=== PATIENT | female | born 1970 | race Caucasian/White ===

== ENCOUNTER 2017-02-19 03:56 | Emergency (ER) | payer MEDICAID ==
[2017-02-19 04:08] VITALS: BP 119/68
--- NOTE | 2017-02-19 04:13 | EDM.PDOCBH ---
ED HPI GENERAL MEDICAL PROBLEM - General Chief Complaint: Behavioral/Psych Stated Complaint: TOOK PILLS Time Seen by Provider: 02/19/17 04:13 - History of Present Illness INITIAL COMMENTS - FREE TEXT/NARRATIVE: 46-year-old female presents emergency room after ingesting pills. The patient became upset and stressed out over a lot of family matters and took up to 80 hydroxyzine 50 mg and up to 60 clonazepam 0.5 mg these prescriptions were filled recently the hydroxyzine the of this month and a clonazepam on the of this month. The patient while she is down with a 12 pack a [place]. The patient new that this was potentially very harmful and that was her intent. Patient has had one suicidal attempt in the past when she was approximately 16 years of age. The patient takes Trintellix, a a antidepressant , but denies taking these this evening. The patient presents emergency room with her . - Related Data Allergies Allergy/AdvReac Type Severity Reaction Status Date / Time No Known Allergies Allergy Verified 03/14/15 17:08 Home Meds: Home Meds Vortioxetine Hydrobromide [Brintellix] 10 mg PO DAILY 03/14/15 [History] ClonazePAM [KlonoPIN] 0.5 mg PO TID 02/19/17 [History] hydrOXYzine Pamoate [Hydroxyzine Pamoate] 50 mg PO TID 02/19/17 [History] Social & Family History - Tobacco Use Smoking Status *Q: Never Smoker - Recreational Drug Use Recreational Drug Use: No ED ROS GENERAL - Review of Systems Review Of Systems: See Below Constitutional: Reports: No Symptoms HEENT: Reports: No Symptoms Respiratory: Reports: No Symptoms, Cough GI/Abdominal: Reports: No Symptoms : Reports: No Symptoms Musculoskeletal: Reports: No Symptoms Skin: Reports: No Symptoms Neurological: Reports: No Symptoms Psychiatric: Reports: Mood Lability, Suicidal Ideation. Denies: Hallucinations , Homicidal Ideation Hematologic/Lymphatic: Reports: No Symptoms Immunologic: Reports: No Symptoms ED EXAM, BEHAVIORAL HEALTH - Physical Exam Exam: See Below Exam Limited By: No Limitations General Appearance: Alert, No Apparent Distress, Other (She is slightly sedated at this time) Eye Exam: Bilateral Eye: EOMI, Normal Inspection, PERRL (Slightly pinpoint) Ears: Normal External Exam, Normal Canal, Hearing Grossly Normal, Normal TMs Nose: Normal Inspection, Normal Mucosa, No Blood Throat/Mouth: Normal Inspection, Normal Oropharynx, Normal Voice, No Airway Compromise Head: Atraumatic, Normocephalic Neck: Normal Inspection, Supple, Non-Tender, Full Range of Motion Respiratory/Chest: No Respiratory Distress, Lungs Clear, Normal Breath Sounds Cardiovascular: Regular Rate, Rhythm, No Edema, No Murmur GI/Abdominal: Normal Bowel Sounds, Soft, Non-Tender, Other (Significant obesity) Back Exam: Normal Inspection. No: CVA Tenderness (L), CVA Tenderness (R) Neurological: Alert, CN II-XII Intact, No Motor/Sensory Deficits Psychiatric: Flat Affect, Suicidal Plan, Suicidal Thoughts. No: Normal Affect COURSE, BEHAVIORAL HEALTH COMP - Course Vital Signs: Last Vital Signs Temp 35.9 C 02/19/17 04:05 Pulse 104 H 02/19/17 04:05 Resp 23 H 02/19/17 04:05 BP 119/68 02/19/17 04:05 Pulse Ox 92 L 02/19/17 04:05 Orders, Labs, Meds: Active Orders 24 hr Category Date Time Status EKG Documentation Completion [RC] STAT Care 02/19/17 04:41 Active Lactated Ringers [Ringers, Lactated] 1,000 ml Med 02/19/17 05:45 Active IV ASDIRECTED Medication Orders Lactated Ringer's (Ringers, Lactated) 1,000 mls @ 150 mls/hr IV ASDIRECTED GUS Last Admin: 02/19/17 05:56 Dose: 150 mls/hr Laboratory Tests 02/19/17 02/19/17 02/19/17 Range/Units 05:05 05:05 05:05 WBC 7.08 (3.98-10.04) K/mm3 RBC 4.45 (3.98-5.22) M/mm3 Hgb 13.4 (11.2-15.7) gm/L Hct 40.0 (34.1-44.9) % MCV 89.9 (79.4-94.8) fl MCH 30.1 (25.6-32.2) pg MCHC 33.5 (32.2-35.5) g/dl RDW Std Deviation 42.0 (36.4-46.3) fL Plt Count 262 (182-369) K/mm3 MPV 10.2 (9.4-12.3) fl Neutrophils % (Manual) 59 (40-60) % Band Neutrophils % 0 (0-10) % Lymphocytes % (Manual) 31 (20-40) % Atypical Lymphs % 1 % Monocytes % (Manual) 7 (2-10) % Eosinophils % (Manual) 0 L (0.7-5.8) % Basophils % (Manual) 2 H (0.1-1.2) Platelet Estimate Adequate Plt Morphology Comment Normal RBC Morph Comment Normal Sodium 141 (136-145) mEq/L Potassium 3.8 (3.5-5.1) mEq/L Chloride 106 (98-107) mEq/L Carbon Dioxide 30 (21-32) mEq/L Anion Gap 8.8 (5-15) BUN 17 (7-18) mg/dL Creatinine 1.0 (0.55-1.02) mg/dL Est Cr Clr Drug Dosing 67.21 mL/min Estimated GFR (MDRD) > 60 (>60) mL/min BUN/Creatinine Ratio 17.0 (14-18) Glucose 150 H (74-106) mg/dL Lactic Acid 2.2 H (0.4-2.0) mmol/L Calcium 9.5 (8.5-10.1) mg/dL Total Bilirubin 0.3 (0.2-1.0) mg/dL AST 19 (15-37) U/L ALT 24 (14-59) U/L Alkaline Phosphatase 81 (46-116) U/L Total Protein 7.1 (6.4-8.2) g/dl Albumin 3.1 L (3.4-5.0) g/dl Globulin 4.0 gm/dL Albumin/Globulin Ratio 0.8 L (1-2) TSH 3rd Generation 1.580 (0.358-3.74) uIU/mL Urine Color (Yellow) Urine Appearance (Clear) Urine pH (5.0-8.0) Ur Specific [place] (1.005-1.030) Urine Protein (Negative) Urine Glucose (UA) (Negative) Urine Ketones (Negative) Urine Occult Blood (Negative) Urine Nitrite (Negative) Urine Bilirubin (Negative) Urine Urobilinogen (0.2-1.0) Ur Leukocyte Esterase (Negative) Urine RBC (0-5) /hpf Urine WBC (0-5) /hpf Ur Epithelial Cells (0-5) /hpf Urine Bacteria (FEW) /hpf Urine Mucus (FEW) /hpf Urine HCG, Qual (NEGATIVE) Salicylates (2.8-20) mg/dL Urine Opiates Screen (NEGATIVE) Ur Buprenorphine Scrn (NEGATIVE) Ur Oxycodone Screen (NEGATIVE) Urine Methadone Screen (NEGATIVE) Ur Propoxyphene Screen (NEGATIVE) Acetaminophen 0 L (10-30) ug/mL Ur Barbiturates Screen (NEGATIVE) Ur Tricyclics Screen (NEGATIVE) Ur Phencyclidine Scrn (NEGATIVE) Ur Amphetamine Screen (NEGATIVE) U Methamphetamines Scrn (NEGATIVE) U Benzodiazepines Scrn (NEGATIVE) U Cocaine Metab Screen (NEGATIVE) U Marijuana (THC) Screen (NEGATIVE) Ethyl Alcohol 0.00 (0.00) gm% 02/19/17 02/19/17 02/19/17 Range/Units 05:05 06:15 06:15 WBC (3.98-10.04) K/mm3 RBC (3.98-5.22) M/mm3 Hgb (11.2-15.7) gm/L Hct (34.1-44.9) % MCV (79.4-94.8) fl MCH (25.6-32.2) pg MCHC (32.2-35.5) g/dl RDW Std Deviation (36.4-46.3) fL Plt Count (182-369) K/mm3 MPV (9.4-12.3) fl Neutrophils % (Manual) (40-60) % Band Neutrophils % (0-10) % Lymphocytes % (Manual) (20-40) % Atypical Lymphs % % Monocytes % (Manual) (2-10) % Eosinophils % (Manual) (0.7-5.8) % Basophils % (Manual) (0.1-1.2) Platelet Estimate Plt Morphology Comment RBC Morph Comment Sodium (136-145) mEq/L Potassium (3.5-5.1) mEq/L Chloride (98-107) mEq/L Carbon Dioxide (21-32) mEq/L Anion Gap (5-15) BUN (7-18) mg/dL Creatinine (0.55-1.02) mg/dL Est Cr Clr Drug Dosing mL/min Estimated GFR (MDRD) (>60) mL/min BUN/Creatinine Ratio (14-18) Glucose (74-106) mg/dL Lactic Acid (0.4-2.0) mmol/L Calcium (8.5-10.1) mg/dL Total Bilirubin (0.2-1.0) mg/dL AST (15-37) U/L ALT (14-59) U/L Alkaline Phosphatase (46-116) U/L Total Protein (6.4-8.2) g/dl Albumin (3.4-5.0) g/dl Globulin gm/dL Albumin/Globulin Ratio (1-2) TSH 3rd Generation (0.358-3.74) uIU/mL Urine Color (Yellow) Urine Appearance (Clear) Urine pH (5.0-8.0) Ur Specific [place] (1.005-1.030) Urine Protein (Negative) Urine Glucose (UA) (Negative) Urine Ketones (Negative) Urine Occult Blood (Negative) Urine Nitrite (Negative) Urine Bilirubin (Negative) Urine Urobilinogen (0.2-1.0) Ur Leukocyte Esterase (Negative) Urine RBC (0-5) /hpf Urine WBC (0-5) /hpf Ur Epithelial Cells (0-5) /hpf Urine Bacteria (FEW) /hpf Urine Mucus (FEW) /hpf Urine HCG, Qual Negative (NEGATIVE) Salicylates 1.4 L (2.8-20) mg/dL Urine Opiates Screen Negative (NEGATIVE) Ur Buprenorphine Scrn Negative (NEGATIVE) Ur Oxycodone Screen Negative (NEGATIVE) Urine Methadone Screen Negative (NEGATIVE) Ur Propoxyphene Screen Negative (NEGATIVE) Acetaminophen (10-30) ug/mL Ur Barbiturates Screen Negative (NEGATIVE) Ur Tricyclics Screen Presumptive positive H (NEGATIVE) Ur Phencyclidine Scrn Negative (NEGATIVE) Ur Amphetamine Screen Negative (NEGATIVE) U Methamphetamines Scrn Presumptive positive H (NEGATIVE) U Benzodiazepines Scrn Presumptive positive H (NEGATIVE) U Cocaine Metab Screen Negative (NEGATIVE) U Marijuana (THC) Screen Negative (NEGATIVE) Ethyl Alcohol (0.00) gm% 02/19/17 Range/Units 06:15 WBC (3.98-10.04) K/mm3 RBC (3.98-5.22) M/mm3 Hgb (11.2-15.7) gm/L Hct (34.1-44.9) % MCV (79.4-94.8) fl MCH (25.6-32.2) pg MCHC (32.2-35.5) g/dl RDW Std Deviation (36.4-46.3) fL Plt Count (182-369) K/mm3 MPV (9.4-12.3) fl Neutrophils % (Manual) (40-60) % Band Neutrophils % (0-10) % Lymphocytes % (Manual) (20-40) % Atypical Lymphs % % Monocytes % (Manual) (2-10) % Eosinophils % (Manual) (0.7-5.8) % Basophils % (Manual) (0.1-1.2) Platelet Estimate Plt Morphology Comment RBC Morph Comment Sodium (136-145) mEq/L Potassium (3.5-5.1) mEq/L Chloride (98-107) mEq/L Carbon Dioxide (21-32) mEq/L Anion Gap (5-15) BUN (7-18) mg/dL Creatinine (0.55-1.02) mg/dL Est Cr Clr Drug Dosing mL/min Estimated GFR (MDRD) (>60) mL/min BUN/Creatinine Ratio (14-18) Glucose (74-106) mg/dL Lactic Acid (0.4-2.0) mmol/L Calcium (8.5-10.1) mg/dL Total Bilirubin (0.2-1.0) mg/dL AST (15-37) U/L ALT (14-59) U/L Alkaline Phosphatase (46-116) U/L Total Protein (6.4-8.2) g/dl Albumin (3.4-5.0) g/dl Globulin gm/dL Albumin/Globulin Ratio (1-2) TSH 3rd Generation (0.358-3.74) uIU/mL Urine Color Yellow (Yellow) Urine Appearance Clear (Clear) Urine pH 5.5 (5.0-8.0) Ur Specific [place] > or = 1.030 (1.005-1.030) Urine Protein 1+ H (Negative) Urine Glucose (UA) Negative (Negative) Urine Ketones Negative (Negative) Urine Occult Blood 2+ H (Negative) Urine Nitrite Negative (Negative) Urine Bilirubin Negative (Negative) Urine Urobilinogen 0.2 (0.2-1.0) Ur Leukocyte Esterase Negative (Negative) Urine RBC 5-10 H (0-5) /hpf Urine WBC 5-10 H (0-5) /hpf Ur Epithelial Cells 0-5 (0-5) /hpf Urine Bacteria Few (FEW) /hpf Urine Mucus Many H (FEW) /hpf Urine HCG, Qual (NEGATIVE) Salicylates (2.8-20) mg/dL Urine Opiates Screen (NEGATIVE) Ur Buprenorphine Scrn (NEGATIVE) Ur Oxycodone Screen (NEGATIVE) Urine Methadone Screen (NEGATIVE) Ur Propoxyphene Screen (NEGATIVE) Acetaminophen (10-30) ug/mL Ur Barbiturates Screen (NEGATIVE) Ur Tricyclics Screen (NEGATIVE) Ur Phencyclidine Scrn (NEGATIVE) Ur Amphetamine Screen (NEGATIVE) U Methamphetamines Scrn (NEGATIVE) U Benzodiazepines Scrn (NEGATIVE) U Cocaine Metab Screen (NEGATIVE) U Marijuana (THC) Screen (NEGATIVE) Ethyl Alcohol (0.00) gm% Medications Generic Name Dose Route Start Last Admin Trade Name Freq PRN Reason Stop Dose Admin Lactated Ringer's 1,000 mls @ 150 mls/hr 02/19/17 05:45 02/19/17 05:56 Ringers, Lactated IV 150 mls/hr ASDIRECTED GSU Administration Re-Assessment/Re-Exam Date: 02/19/17 Medical Clearance: 02/19/17 08:03 Since case was discussed early on with poison control who recommended 4-6 hours of observation after the time of ingestion. Patient claims ingestion time was around midnight patient's states it was closer to 10 PM. The patient has had some sedation while here however is arousable and ask appropriate. Patient was evaluated by Gerald from [facility] who also believes the patient needs to be committed for further psychiatric evaluation and treatment. She did arrange acceptance at [facility] in [facility]. Discharge vs Psych Eval/Treatment:: 02/19/17 08:02 Patient will be discharged to [facility] in [place]. Case discussed with Ashley Fuentes excepting the patient. Departure - Departure Time of Disposition: 08:08 Disposition: DC/Tfer to Psych Hosp/Unit 65 Clinical Impression: Suicide attempt by drug ingestion - Discharge Information Referrals: PCP,None [Primary Care Provider] - Forms: ED Department Discharge - My Orders Last 24 Hours: My Active Orders 02/19/17 04:41 EKG Documentation Completion [RC] STAT 02/19/17 05:45 Lactated Ringers [Ringers, Lactated] 1,000 ml IV ASDIRECTED - Assessment/Plan Last 24 Hours: My Active Orders 02/19/17 04:41 EKG Documentation Completion [RC] STAT 02/19/17 05:45 Lactated Ringers [Ringers, Lactated] 1,000 ml IV ASDIRECTED
[2017-02-19 05:39] LABS: ACETAMINOPHEN 0 ug/mL (10-30)
[2017-02-19] MEDS ORDERED: Lactated Ringers 1,000 ML IV SCH (05:45)
== END 2017-02-19 09:55 ==
LOC: JD.ED 03:56
DX: T42.4X2A Poisoning by benzodiazepines, intentional self-harm, initial encounter (principal); Z79.899 Other long term (current) drug therapy
CPT/HCPCS: 36415; 80053; 80306; 81001; 81025; 83605; 84443; 85025; 93005; 96360; 96361; 99285; G0480; J7120

== ENCOUNTER 2017-02-23 13:54 | Emergency (ER) | payer MEDICAID ==
[2017-02-23 14:14] VITALS: BP 142/73
--- NOTE | 2017-02-23 14:54 | EDM.PDOCBH ---
ED HPI GENERAL MEDICAL PROBLEM - General Chief Complaint: Behavioral/Psych Stated Complaint: PSYCH EVAL Time Seen by Provider: 02/23/17 14:31 Source of Information: Reports: Patient History Limitations: Reports: No Limitations - History of Present Illness INITIAL COMMENTS - FREE TEXT/NARRATIVE: Patient is a 46-year-old female with history of depression and anxiety who presents to the ED complaining of suicidal ideations. She just wants to . She has no plan in place. She was just recently released from [facility] yesterday. She was admitted for overdosing on medications. She states they did not modify in her medications except for stopping the hydroxyzine. Currently does not have an appointment scheduled to see a psych provider locally. She was hoping to see a provider at [facility] tomorrow but they do not take appointments. She wants help. She has taken amitriptyline, clonazepam, meloxicam, and vortioxetine today as prescribed. She denies taking any medications in excess. She has not taken any aspirin or Tylenol. She denies using any alcohol or recreational drugs. She has been seen multiple times for depression, anxiety, suicical ideations, and attempts. - Related Data Allergies Allergy/AdvReac Type Severity Reaction Status Date / Time No Known Allergies Allergy Verified 03/14/15 17:08 Home Meds: Home Meds ClonazePAM [KlonoPIN] 0.5 mg PO TID 02/19/17 [History] Vortioxetine Hydrobromide [Trintellix] 15 mg PO QAM #90 tablet 02/23/17 [Rx] hydrOXYzine Pamoate [Hydroxyzine Pamoate] 50 mg PO TID #90 capsule 02/23/17 [Rx] Past Medical History Cardiovascular History: Reports: Other (See Below) Other Cardiovascular History: prolapsed mitral valve Psychiatric History: Reports: Suicide Attempt, Suicidal Ideation Social & Family History - Family History Family Medical History: Noncontributory - Tobacco Use Smoking Status *Q: Never Smoker - Caffeine Use Caffeine Use: Reports: Coffee, Soda - Recreational Drug Use Recreational Drug Use: No ED ROS GENERAL - Review of Systems Review Of Systems: ROS reveals no pertinent complaints other than HPI. ED EXAM, BEHAVIORAL HEALTH - Physical Exam Exam: See Below Exam Limited By: No Limitations General Appearance: Alert, WD/WN, Other (crying) Eye Exam: Bilateral Eye: PERRL Ears: Hearing Grossly Normal Nose: Normal Inspection Throat/Mouth: Normal Voice, No Airway Compromise Head: Atraumatic, Normocephalic Neck: Normal Inspection, Supple Respiratory/Chest: No Respiratory Distress, No Accessory Muscle Use Cardiovascular: Normal Peripheral Pulses Neurological: Alert, CN II-XII Intact, Normal Cognition, Oriented x 3 Psychiatric: Alert, Normal Cognition, Oriented, Depressed Mood, Tearful, Suicidal Thoughts. No: Homicidal Thoughts, Suicidal Plan, Auditory Hallucinations, Visual Hallucinations Skin Exam: Warm, Dry, Intact, Normal color, No rash COURSE, BEHAVIORAL HEALTH COMP - Course Vital Signs: Last Vital Signs Temp 97.7 F 02/23/17 14:10 Pulse 95 02/23/17 14:10 Resp BP 142/73 H 02/23/17 14:10 Pulse Ox 100 02/23/17 14:10 Orders, Labs, Meds: Laboratory Tests 02/23/17 02/23/17 02/23/17 Range/Units 15:12 15:12 16:35 WBC 8.26 (3.98-10.04) K/mm3 RBC 4.53 (3.98-5.22) M/mm3 Hgb 13.8 (11.2-15.7) gm/L Hct 40.3 (34.1-44.9) % MCV 89.0 (79.4-94.8) fl MCH 30.5 (25.6-32.2) pg MCHC 34.2 (32.2-35.5) g/dl RDW Std Deviation 41.4 (36.4-46.3) fL Plt Count 39 L (182-369) K/mm3 MPV 10.7 (9.4-12.3) fl Neut % (Auto) 54.3 (34.0-71.1) % Lymph % (Auto) 32.9 (19.3-51.7) % [place] % (Auto) 7.5 (4.7-12.5) % Eos % (Auto) 4.4 (0.7-5.8) Baso % (Auto) 0.2 (0.1-1.2) % Neut # (Auto) 4.48 (1.56-6.13) K/mm3 Lymph # (Auto) 2.72 (1.18-3.74) K/mm3 [place] # (Auto) 0.62 H (0.24-0.36) K/mm3 Eos # (Auto) 0.36 (0.04-0.36) K/mm3 Baso # (Auto) 0.02 (0.01-0.08) K/mm3 Manual Slide Review Abnormal smear Sodium (136-145) mEq/L Potassium (3.5-5.1) mEq/L Chloride (98-107) mEq/L Carbon Dioxide (21-32) mEq/L Anion Gap (5-15) BUN (7-18) mg/dL Creatinine (0.55-1.02) mg/dL Est Cr Clr Drug Dosing mL/min Estimated GFR (MDRD) (>60) mL/min BUN/Creatinine Ratio (14-18) Glucose (74-106) mg/dL Calcium (8.5-10.1) mg/dL Total Bilirubin (0.2-1.0) mg/dL AST (15-37) U/L ALT (14-59) U/L Alkaline Phosphatase (46-116) U/L Total Protein (6.4-8.2) g/dl Albumin (3.4-5.0) g/dl Globulin gm/dL Albumin/Globulin Ratio (1-2) Urine Color Yellow (Yellow) Urine Appearance Clear (Clear) Urine pH 5.5 (5.0-8.0) Ur Specific [place] > or = 1.030 (1.005-1.030) Urine Protein Negative (Negative) Urine Glucose (UA) Negative (Negative) Urine Ketones Negative (Negative) Urine Occult Blood Negative (Negative) Urine Nitrite Negative (Negative) Urine Bilirubin Negative (Negative) Urine Urobilinogen 0.2 (0.2-1.0) Ur Leukocyte Esterase Negative (Negative) Urine RBC 0-5 (0-5) /hpf Urine WBC 0-5 (0-5) /hpf Ur Epithelial Cells 0-5 (0-5) /hpf Amorphous Sediment Few H (NOT SEEN) /hpf Urine Bacteria Few (FEW) /hpf Urine Mucus Moderate H (FEW) /hpf Salicylates (2.8-20) mg/dL Urine Opiates Screen Negative (NEGATIVE) Ur Buprenorphine Scrn Negative (NEGATIVE) Ur Oxycodone Screen Negative (NEGATIVE) Urine Methadone Screen Negative (NEGATIVE) Ur Propoxyphene Screen Negative (NEGATIVE) Acetaminophen (10-30) ug/mL Ur Barbiturates Screen Negative (NEGATIVE) Ur Tricyclics Screen Presumptive positive H (NEGATIVE) Ur Phencyclidine Scrn Negative (NEGATIVE) Ur Amphetamine Screen Negative (NEGATIVE) U Methamphetamines Scrn Negative (NEGATIVE) U Benzodiazepines Scrn Negative (NEGATIVE) U Cocaine Metab Screen Negative (NEGATIVE) U Marijuana (THC) Screen Negative (NEGATIVE) Ethyl Alcohol (0.00) gm% 02/23/17 02/23/17 Range/Units 16:35 16:35 WBC (3.98-10.04) K/mm3 RBC (3.98-5.22) M/mm3 Hgb (11.2-15.7) gm/L Hct (34.1-44.9) % MCV (79.4-94.8) fl MCH (25.6-32.2) pg MCHC (32.2-35.5) g/dl RDW Std Deviation (36.4-46.3) fL Plt Count (182-369) K/mm3 MPV (9.4-12.3) fl Neut % (Auto) (34.0-71.1) % Lymph % (Auto) (19.3-51.7) % [place] % (Auto) (4.7-12.5) % Eos % (Auto) (0.7-5.8) Baso % (Auto) (0.1-1.2) % Neut # (Auto) (1.56-6.13) K/mm3 Lymph # (Auto) (1.18-3.74) K/mm3 [place] # (Auto) (0.24-0.36) K/mm3 Eos # (Auto) (0.04-0.36) K/mm3 Baso # (Auto) (0.01-0.08) K/mm3 Manual Slide Review Sodium 142 (136-145) mEq/L Potassium 4.5 (3.5-5.1) mEq/L Chloride 105 (98-107) mEq/L Carbon Dioxide 26 (21-32) mEq/L Anion Gap 15.5 H (5-15) BUN 12 (7-18) mg/dL Creatinine 1.0 (0.55-1.02) mg/dL Est Cr Clr Drug Dosing 69.81 mL/min Estimated GFR (MDRD) > 60 (>60) mL/min BUN/Creatinine Ratio 12.0 L (14-18) Glucose 89 (74-106) mg/dL Calcium 9.3 (8.5-10.1) mg/dL Total Bilirubin 0.3 (0.2-1.0) mg/dL AST 34 (15-37) U/L ALT 40 (14-59) U/L Alkaline Phosphatase 86 (46-116) U/L Total Protein 7.5 (6.4-8.2) g/dl Albumin 3.4 (3.4-5.0) g/dl Globulin 4.1 gm/dL Albumin/Globulin Ratio 0.8 L (1-2) Urine Color (Yellow) Urine Appearance (Clear) Urine pH (5.0-8.0) Ur Specific [place] (1.005-1.030) Urine Protein (Negative) Urine Glucose (UA) (Negative) Urine Ketones (Negative) Urine Occult Blood (Negative) Urine Nitrite (Negative) Urine Bilirubin (Negative) Urine Urobilinogen (0.2-1.0) Ur Leukocyte Esterase (Negative) Urine RBC (0-5) /hpf Urine WBC (0-5) /hpf Ur Epithelial Cells (0-5) /hpf Amorphous Sediment (NOT SEEN) /hpf Urine Bacteria (FEW) /hpf Urine Mucus (FEW) /hpf Salicylates 1.5 L (2.8-20) mg/dL Urine Opiates Screen (NEGATIVE) Ur Buprenorphine Scrn (NEGATIVE) Ur Oxycodone Screen (NEGATIVE) Urine Methadone Screen (NEGATIVE) Ur Propoxyphene Screen (NEGATIVE) Acetaminophen 0 L (10-30) ug/mL Ur Barbiturates Screen (NEGATIVE) Ur Tricyclics Screen (NEGATIVE) Ur Phencyclidine Scrn (NEGATIVE) Ur Amphetamine Screen (NEGATIVE) U Methamphetamines Scrn (NEGATIVE) U Benzodiazepines Scrn (NEGATIVE) U Cocaine Metab Screen (NEGATIVE) U Marijuana (THC) Screen (NEGATIVE) Ethyl Alcohol < 0.03 (0.00) gm% Re-Assessment/Re-Exam: Patient has suicidal ideations with no plan in place. She wants to . She is not happy with the help she got from [facility]. She wants additional therapy inpatient. Ordered CBC, chem 14, urine drug tox, serum EtOH, salicylate take, acetaminophen , EKG, and UA. Contact a long term care social worker to come speak with the patient. Patient and family has mentioned [facility] crisis bed for placement. [id number] Riggs medical professionals psych provider at [facility] in [place]. He does not believe patient requires admission back to the hospital. Highly unlikely patient is not better since being discharged from [place] yesterday. Request patient be admitted to the hospital or remain in the ED and have patient be evaluated at [facility]. That is not a option at this point. I have offered that if Dr. Siddiqui medical professionals test psych provider evaluates the patient and believes otherwise that she needs admission that he will do so. [address] Siddiqui he will evaluate the patient via Tele[facility]. [address] Siddiqui. States patient does not require hospitalization. He will restart the hydroxyzine 50 mg 3 times a day and increase patient's vortioxetine to 15 mg daily. Have the patient see him or Dr. price on outpatient basis for psych concerns. Patient discharged home with instructions as documented. Per pharmacy patients pharmacy will not pay for the medication unless it is one pill. Thus prescription had to be changed to 20 mg PO everyday. Departure - Departure Time of Disposition: 18:33 Disposition: Home, Self-Care 01 Condition: Good Clinical Impression: Depressive disorder, Suicidal ideation - Discharge Information Prescriptions: hydrOXYzine Pamoate [Hydroxyzine Pamoate] 50 mg PO TID #90 capsule Vortioxetine Hydrobromide [Trintellix] 15 mg PO QAM #90 tablet Instructions: Suicidal Feelings: How to Help Yourself Referrals: Melida Bustamante NP [Primary Care Provider] - Martin Siddiqui MD [Physician] - Forms: ED Department Discharge Additional Instructions: Take the hydroxyzine 50 mg 3 times a day and vortioxetine 15mg every day as prescribed. Continue taking amitriptyline, clonazepam, and meloxicam as prescribed. Contacted Dr. Price and make an appointment to be seen this week. If you like you can see Dr. Siddiqui on an outpatient basis for all your psych concerns. If you schedule an appt with Dr. Siddiqui as for a 1 hr visit time slot. Refrain from alcohol use. If you have any suicidal ideations or plan in place please return to the ED DONI.
[2017-02-23 17:30] LABS: ACETAMINOPHEN 0 ug/mL (10-30)
--- NOTE | 2017-02-24 10:27 | CONS ---
CONSULTING PHYSICIAN: Martin Siddiqui MD DATE OF CONSULTATION: 02/23/2017 This is a 60-minute emergency room consult. IDENTIFICATION: The patient is a 46-year-old female, presents to the [facility] Emergency Room in [place], [place]. She is seen for psychiatric consultation. CHIEF COMPLAINT: "Tuesday, I attempted to take my life and my brought me in." HISTORY OF PRESENT ILLNESS: The patient is a 46-year-old female, who reports that she has been feeling really depressed and then at the end of last week, she overdosed on pills and then this was done in the face of alcohol use. She was seen in the emergency room and transferred to inpatient psychiatry at the [facility] in [place]. She was subsequently discharged yesterday, but she knows "all they did there was give me a pill" and she states that she continues to feel quite depressed "I am just sad" at this point. She goes on to note "I just want to ," but states that she is not actively suicidal. She just feels very hopeless about things. She has a lot of anxiety and mood swings. She does have racing thoughts and ruminations to the point of distraction and notes "when I get really very sad, I tend to drink." She acknowledges this is a problem. She states that prior to her admission last week to the [facility], she had been doing pretty good. She had been on medication called Trintellix for the past couple of years and this had largely helped her and then a few weeks ago, she was started on a combination of Klonopin and hydroxyzine. She states that right before she started feeling really bad last week "I ran out of that hydroxyzine and that seemed to be really helping me." She is not feeling that she needs to go into the hospital at this point in time and began carmen for safety, but she is wondering if something can be done to adjust her medications since she does not feel so sad and depressed. Again, she is denying that she is suicidal or homicidal. She denies any psychotic, delusional, or paranoid symptoms. She does state that she has been complicating her mental health issues by drinking, but states she has greatly cutback since last week even though she has been drinking since discharge, she states that she will stop drinking henceforth because "I know it is not the best thing for me to be doing at all." MEDICATIONS: At the time of presentation; 1. Trintellix 10 mg q.a.m. 2. Klonopin 0.5 mg t.i.d. 3. Amitriptyline 25 mg at bedtime. 4. Hydroxyzine 50 mg t.i.d., though the patient has been off this for about a week now. 5. Meloxicam 15 mg daily. 6. Imitrex p.r.n. ALLERGIES: No known drug allergies. PAST MEDICAL HISTORY: The patient denies. REVIEW OF SYSTEMS: Negative for any acute difficulties or complications currently with GI, , pulmonary, cardiac, endocrine, blood immune, skin, musculoskeletal, and nervous systems. FAMILY PSYCHIATRIC AND CD HISTORY: The patient reports father has a history of alcoholism. Mother has a history of schizophrenia. PAST PSYCHIATRIC AND CD HISTORY: The patient reports one psychiatric hospitalization just last week, 02/19/2017 at the [facility] in [place] after overdosing. Denies any chemical dependency treatments. She had one suicide attempt and that was on 02/19/2017. PAST PSYCHIATRIC MEDICATION HISTORY: Positive but the patient cannot remember the names of other psych medications she has been on. Primary psychiatrist on an outpatient basis is Dr. Price. SOCIAL HISTORY: The patient was born and raised in [place], [place]. She is the oldest of 3 siblings and 2 brothers. The patient's parents when the patient was 14 years of age. She stayed with her mother after divorce. Father was unemployed. The patient's mother was a cook. The patient's highest level of education is 10th grade. The patient has been twice. Her 2nd marriage has been for the past 14 years. She has 3 children from the 1st marriage and 3 children from 2nd marriage. She lives with her and 4 of her children. Her owns a dariel business in [place]. The family does live in [place], [place]. The patient denies any prior service or any current legal difficulties. She is raised [employer]. She enjoys reading. MENTAL STATUS EXAM: The patient is a 46-year-old obese white female in no apparent distress. Speech is of regular rate and rhythm. The patient is cognitively oriented. Psychomotor activities within normal limits. There is no abnormal motor movements or tics observed. Gait is steady. Station is normal. Mood is depressed and anxious. Affect is consistent with stated mood restrictive, but cooperative overall for the purposes of the emergency room consult. There is no behavioral or stated evidence of acute suicidal or homicidal ideation or acute psychotic, delusional, or paranoid symptoms. Thought processes are significant for racing thoughts and ruminations, however, there were no manic symptoms or loose associations evident. Judgment and insight appear unimpaired at this point in time. Motivation for help appears good. Vital signs are stable at the time of emergency room presentation. IMPRESSION: [place] I: 1. Major depressive disorder, recurrent, F33.3. 2. Anxiety disorder, not otherwise specified, F41 0.9. [place] II: None. [place] III: Obesity. [place] IV: Severe. [place] V: 55 to 60. PLAN: 1. Increase the patient's Trintellix from 10 to 15 mg q.a.m. to help with symptoms of depression. 2. Restart and continue hydroxyzine 50 mg t.i.d. for anxiety reduction. 3. Continue Klonopin 0.5 mg t.i.d. also for anxiety reduction. 4. Continue amitriptyline 25 mg at bedtime for sleep initiation and maintenance as well as mood. 5. Other medications as dosed and prescribed by the patient's primary outpatient medical treatment team. 6. Recommend that the patient followup with outpatient Psychiatry once she is deemed medically stable in the emergency room and discharge back to community. 7. Sobriety. 8. The patient does appear safe from a psychiatric standpoint. At this point in time, she will be discharged back to community as she is carmen for safety and thinking clearly, and does not appear to pose a danger to herself or others at the present time. 9. Medication compliance. 10.Counseling for psychosocial issues. 11.We will continue follow up with the patient on as needed basis while she remains in the emergency room setting. 12.We will follow up with the patient sooner if any complications in the interim. 13.Crisis plan is in place. ANEUDY /[id number]
== END 2017-02-23 18:50 | disposition home or self-care (01) ==
LOC: JD.ED 13:54
DX: F32.9 Major depressive disorder, single episode, unspecified (principal); R45.851 Suicidal ideations
CPT/HCPCS: 36415; 80053; 80306; 81001; 85025; 93005; 99284; G0480; 99283

== ENCOUNTER 2017-10-13 12:17 | Emergency (ER) | payer MEDICAID ==
[2017-10-13] MEDS ORDERED: Metoclopramide 10 MG/2 ML SDV IVPUSH ONE (12:48)
[2017-10-13] MEDS ORDERED: HYDROmorphone 0.5 MG/0.5 ML SYRINGE IVPUSH ONE (12:48)
[2017-10-13] MEDS ORDERED: diphenhydrAMINE 50 MG/ML SDV IVPUSH ONE (12:48)
--- NOTE | 2017-10-13 12:52 | EDM.PDOC ---
ED HPI GENERAL MEDICAL PROBLEM - General Chief Complaint: Headache Stated Complaint: MIGRAINE Time Seen by Provider: 10/13/17 12:47 Source of Information: Reports: Patient History Limitations: Reports: No Limitations, Other - History of Present Illness INITIAL COMMENTS - FREE TEXT/NARRATIVE: 46-year-old female presents to the ED with a 2 day history of a severe headache that she awoke with on Tuesday. Patient has a history of migraine headaches and usually can take Imitrex at onset of headache and abort the headache. Unfortunately she woke up on Tuesday with this headache and Imitrex did not relieve the headache at all. She's been for the most part bedridden over the last 48 hours with very limited fluid and food intake due to nausea. She has not vomited but is very quite nauseated. Headache is currently behind her left eye and then radiates across to the other side as well. He is extremely photophobic and hearing is excessively lower than normal as well. Patient has not no cine change in neurological function. No visual acuity changes. No recent falls or closed head injuries. He is not on any anticoagulants. Onset: Unknown/Unsure Onset Date: 10/11/17 (Awoke with headache on Tuesday.) Duration: Day(s): Location: Reports: Head (Diffuse headache mostly centered behind her left orbit. ) Quality: Reports: Ache, Pressure, Throbbing, Other (Pounding) Severity: Severe (8 out of 10.) Improves with: Reports: Rest (Dark room.) Worsens with: Reports: Other (Movement and bright light.) Context: Denies: Activity, Exercise, Lifting, Sick Contact Associated Symptoms: Reports: Loss of Appetite, Malaise (Has taken in very little in terms of fluids or food the last 2 days.), Nausea/Vomiting. Denies: No Other Symptoms, Confusion, Chest Pain, Cough, cough w sputum, Diaphoresis, Fever/Chills, Headaches, Rash, Seizure (Nausea with no vomiting), Shortness of Breath, Syncope Treatments RADIO DESPATCHER: Reports: Other (see below) (Imitrex and Motrin which failed to relieve the headache.) Headache Pain Score (Numeric/FACES): 8 - Related Data Allergies Allergy/AdvReac Type Severity Reaction Status Date / Time No Known Allergies Allergy Verified 10/13/17 12:27 Home Meds: Home Meds buPROPion [Wellbutrin] 100 mg PO DAILY 10/13/17 [History] Past Medical History Cardiovascular History: Reports: Other (See Below) Other Cardiovascular History: prolapsed mitral valve Psychiatric History: Reports: Depression (Chronic depression. Currently on antidepressant medication), Suicide Attempt, Suicidal Ideation Social & Family History - Family History Family Medical History: Noncontributory - Tobacco Use Smoking Status *Q: Never Smoker - Caffeine Use Caffeine Use: Reports: Tea - Recreational Drug Use Recreational Drug Use: No - Living Situation & Occupation Living situation: Reports: Occupation: Unemployed ED ROS GENERAL - Review of Systems Review Of Systems: See Below Constitutional: Reports: Malaise, Decreased Appetite. Denies: Fever, Chills HEENT: Reports: Other Respiratory: Reports: No Symptoms (Very photophobic.) Cardiovascular: Reports: No Symptoms Endocrine: Reports: No Symptoms GI/Abdominal: Reports: Nausea Musculoskeletal: Reports: No Symptoms Skin: Reports: No Symptoms Neurological: Reports: Headache (See history of present illness). Denies: Paresthesia, Pre-Existing Deficit, Seizure, Syncope, Tingling, Tremors, Trouble Speaking, Difficulty Walking, Weakness, Change in Speech, Gait Disturbance Psychiatric: Reports: Depression Hematologic/Lymphatic: Reports: No Symptoms (Current depression controlled with current antidepressant medication) Immunologic: Reports: No Symptoms - Physical Exam Exam: See Below Exam Limited By: No Limitations General Appearance: Alert, WD/WN, Other (Is photophobic and is examined in a darkened room.) Eye Exam: Bilateral Eye: Normal Inspection, PERRL Throat/Mouth: Normal Inspection, Normal Lips, Other (Time is mildly dry and coated) Head Exam: Atraumatic, Normocephalic Neck: Normal Inspection, Supple, Non-Tender, Full Range of Motion. No: Lymphadenopathy (L), Lymphadenopathy (R) Neuro Exam (Abbreviated): Alert, Oriented, CN II-XII Intact, Normal Cognition, Normal Reflexes, No Motor/Sensory Deficits, Other (Normal rapid alternating movements. No pronator drift. Normal motor power and tone in all 4 extremities.) Extremities: Normal Inspection, Normal Range of Motion, Non-Tender, No Pedal Edema Psychiatric: Normal Affect Skin Exam: Warm, Dry, Intact, Normal Color Course - Vital Signs Last Recorded V/S: Last Vital Signs Temp 36.4 C 10/13/17 12:25 Pulse 87 10/13/17 13:17 Resp 16 10/13/17 13:17 BP 116/81 10/13/17 13:17 Pulse Ox 97 10/13/17 13:17 - Orders/Labs/Meds Orders: Active Orders 24 hr Category Date Time Status Dextrose 5%-0.9% NaCl [Dextrose 5%-Normal Saline] 1,000 Med 10/13/17 13:00 Active ml IV ASDIRECTED Ketorolac [Toradol] Med 10/13/17 13:00 Active 30 mg IVPUSH ONETIME Medication Orders Dextrose/Sodium Chloride (Dextrose 5%-Normal Saline) 1,000 mls @ 999 mls/hr IV ASDIRECTED GUS Last Admin: 10/13/17 13:09 Dose: 999 mls/hr Ketorolac Tromethamine (Toradol) 30 mg IVPUSH ONETIME GUS Last Admin: 10/13/17 13:09 Dose: 30 mg Meds: Medications Generic Name Dose Route Start Last Admin Trade Name Freq PRN Reason Stop Dose Admin Dextrose/Sodium Chloride 1,000 mls @ 999 mls/hr 10/13/17 13:00 10/13/17 13:09 Dextrose 5%-Normal Saline IV 999 mls/hr ASDIRECTED GUS Administration Ketorolac Tromethamine 30 mg 10/13/17 13:00 10/13/17 13:09 Toradol IVPUSH 30 mg ONETIME GUS Administration Discontinued Medications Generic Name Dose Route Start Last Admin Trade Name Freq PRN Reason Stop Dose Admin Diphenhydramine HCl 25 mg 10/13/17 12:48 10/13/17 13:09 Benadryl IVPUSH 10/13/17 12:49 25 mg ONETIME ONE Administration Hydromorphone HCl 0.5 mg 10/13/17 12:48 10/13/17 13:09 Dilaudid IVPUSH 10/13/17 12:49 0.5 mg ONETIME ONE Administration Metoclopramide HCl 10 mg 10/13/17 12:48 10/13/17 13:09 Reglan IVPUSH 10/13/17 12:49 10 mg ONETIME ONE Administration - Radiology Interpretation Free Text/Narrative:: 46-year-old female presents to the ED with a primary left hemicranial headache centered mostly retro-orbital only for the last 2 days. She awoke with a headache. She has a history of migraine headaches and usually is able to take Imitrex however Imitrex failed to work on this occasion. She's been for the most part bedridden in a darkened room for the last 48 hours without any relief. She remains nauseated without any vomiting. She's had very little oral intake in the last 48 hours. Neuro exam is completely normal. Plan IV D5 normal saline at open. Will be given Toradol 30 mg IV with Reglan 10 mg IV and Dilaudid 0.5 mg IV and Benadryl 25 mg IV for headache relief.. - Re-Assessments/Exams Free Text/Narrative Re-Assessment/Exam: 10/13/17 13:50: On reevaluation she reports that her headache is completely gone. She will therefore be discharged to home advised bed rest for a couple of hours and then resume diet with plenty of fluids such as Gatorade or Powerade to rehydrate herself. Follow-up as needed Departure - Departure Time of Disposition: 13:46 Disposition: Home, Self-Care 01 Condition: Fair Clinical Impression: Migraine - Discharge Information Instructions: Migraine Headache Referrals: Melida Bustamante NP [Primary Care Provider] - Forms: ED Department Discharge Additional Instructions: Evaluation the emergency room today in regards to 2 day history of severe left sided headache primarily. History of migraines. You're treated with intravenous fluids to rehydrate you. You are given medications Benadryl 25 mg IV with Reglan 10 mg IV and Toradol 30 mg IV and Dilaudid 0.5 mg IV for headache relief. At the time of discharge her headache was approximate 70-80% improved. Suggest home to bed to sleep for 3-4 hours and then resume regular diet with plenty of fluids today and tomorrow such as Gatorade Powerade and advance diet as tolerated. May resume all normal medications. - My Orders Last 24 Hours: My Active Orders 10/13/17 13:00 Dextrose 5%-0.9% NaCl [Dextrose 5%-Normal Saline] 1,000 ml IV ASDIRECTED Ketorolac [Toradol] 30 mg IVPUSH ONETIME - Assessment/Plan Last 24 Hours: My Active Orders 10/13/17 13:00 Dextrose 5%-0.9% NaCl [Dextrose 5%-Normal Saline] 1,000 ml IV ASDIRECTED Ketorolac [Toradol] 30 mg IVPUSH ONETIME
[2017-10-13] MEDS ORDERED: Dextrose 5%-0.9% NaCl 1,000 ML IV SCH (13:00)
[2017-10-13] MEDS ORDERED: Ketorolac 30 MG/ML SDV IVPUSH SCH (13:00)
[2017-10-13 13:18] VITALS: BP 116/81
== END 2017-10-13 14:08 | disposition home or self-care (01) ==
LOC: JD.ED 12:17
DX: G43.909 Migraine, unspecified, not intractable, without status migrainosus (principal)
CPT/HCPCS: 96361; 96374; 96375; 99283; J1170; J1200; J1885; J2765; J7042; 99284

== ENCOUNTER 2020-01-28 17:28 | Emergency (ER) | payer MEDICAID ==
[2020-01-28 17:46] VITALS: BP 136/96; PULSE 80
[2020-01-28] MEDS ORDERED: Sodium Chloride 0.9% 10 ML Syringe FLUSH PRN (17:56)
[2020-01-28] MEDS ORDERED: Metoclopramide 10 MG/2 ML SDV IVPUSH ONE (17:56)
[2020-01-28] MEDS ORDERED: Sodium Chloride 0.9% 1,000 ML IV ONE (17:56)
[2020-01-28] MEDS ORDERED: diphenhydrAMINE 50 MG/ML SDV IVPUSH ONE (17:56)
[2020-01-28] MEDS ORDERED: Ketorolac 30 MG/ML SDV IVPUSH ONE (17:56)
--- NOTE | 2020-01-28 18:08 | EDM.PDOC ---
ED HPI GENERAL MEDICAL PROBLEM - General Chief Complaint: Headache Stated Complaint: MIGRAINE Time Seen by Provider: 01/28/20 17:47 Source of Information: Reports: Patient, RN Notes Reviewed History Limitations: Reports: No Limitations - History of Present Illness INITIAL COMMENTS - FREE TEXT/NARRATIVE: Patient is a 49-year-old female who presents to the ED for evaluation of her migraine headache. Patient notes that she had a small headache this morning, but it has grown into a full-blown headache throughout the day. She took Imitrex a few hours ago, and she states this did not help much. She has not taken any sort of Tylenol ibuprofen. She does have a history of migraines, states this is very typical of her migraines, but she has not had a migraine in a while. She notes this to be in the right frontal portion of her head. She is notes this to be a throbbing/pounding in nature. Her primary care provider is Abimbola Hart. She is complaining of nausea but no vomiting, she is not had any fevers/chills, cough/shortness of breath. She was not sick prior to this headache. She notes she is light sensitive and sound sensitive. Headache Pain Score (Numeric/FACES): 10 - Related Data Allergies Allergy/AdvReac Type Severity Reaction Status Date / Time No Known Allergies Allergy Verified 01/28/20 17:45 Home Meds: Home Meds buPROPion [Wellbutrin] 100 mg PO DAILY 10/13/17 [History] Past Medical History Cardiovascular History: Reports: Other (See Below) Other Cardiovascular History: prolapsed mitral valve Psychiatric History: Reports: Depression, Suicide Attempt, Suicidal Ideation Social & Family History - Family History Family Medical History: Noncontributory - Tobacco Use Smoking Status *Q: Never Smoker Second Hand Smoke Exposure: No - Caffeine Use Caffeine Use: Reports: Coffee - Recreational Drug Use Recreational Drug Use: No - Living Situation & Occupation Living situation: Reports: Occupation: Unemployed ED ROS GENERAL - Review of Systems Review Of Systems: Comprehensive ROS is negative, except as noted in HPI. - Physical Exam Exam: See Below Exam Limited By: No Limitations General Appearance: Alert, WD/WN, No Apparent Distress Eye Exam: Bilateral Eye: EOMI, Normal Inspection, PERRL Head Exam: Atraumatic, Normocephalic Neck: Normal Inspection, Supple, Non-Tender, Full Range of Motion Respiratory/Chest: No Respiratory Distress, Lungs Clear, Normal Breath Sounds, No Accessory Muscle Use, Chest Non-Tender Cardiovascular: Normal Peripheral Pulses, Regular Rate, Rhythm, No Murmur Neuro Exam (Abbreviated): Alert, Oriented, Normal Cognition, No Motor/Sensory Deficits Extremities: Normal Inspection, Normal Capillary Refill Psychiatric: Normal Affect, Normal Mood Skin Exam: Warm, Dry, Intact, Normal Color, No Rash Course - Vital Signs Last Recorded V/S: Last Vital Signs Temp 97 F 01/28/20 17:43 Pulse 80 01/28/20 17:43 Resp 16 01/28/20 17:43 BP 136/96 H 01/28/20 17:43 Pulse Ox 99 01/28/20 17:43 - Orders/Labs/Meds Orders: Active Orders 24 hr Category Date Time Status Peripheral IV Care [RC] . DIRECTED Care 01/28/20 17:56 Ordered Sodium Chloride 0.9% [Saline Flush] Med 01/28/20 17:56 Active 10 ml FLUSH ASDIRECTED PRN Peripheral IV Insertion Adult [OM.PC] Routine Oth 01/28/20 17:56 Ordered Medication Orders Sodium Chloride (Saline Flush) 10 ml FLUSH ASDIRECTED PRN PRN Reason: Keep Vein Open Last Admin: 01/28/20 18:41 Dose: 10 ml Documented by: LORETO Meds: Medications Generic Name Dose Route Start Last Admin Trade Name Freq PRN Reason Stop Dose Admin Sodium Chloride 10 ml 01/28/20 17:56 01/28/20 18:41 Saline Flush FLUSH 10 ml ASDIRECTED PRN Administration Keep Vein Open Discontinued Medications Generic Name Dose Route Start Last Admin Trade Name Freq PRN Reason Stop Dose Admin Diphenhydramine HCl 25 mg 01/28/20 17:56 01/28/20 18:41 Benadryl IVPUSH 01/28/20 17:57 25 mg ONETIME ONE Administration Sodium Chloride 1,000 mls @ 999 mls/hr 01/28/20 17:56 01/28/20 18:41 Normal Saline IV 01/28/20 18:56 999 mls/hr ASDIRECTED ONE Administration Ketorolac Tromethamine 30 mg 01/28/20 17:56 01/28/20 18:41 Toradol IVPUSH 01/28/20 17:57 30 mg ONETIME ONE Administration Metoclopramide HCl 10 mg 01/28/20 17:56 01/28/20 18:41 Reglan IVPUSH 01/28/20 17:57 10 mg ONETIME ONE Administration - Re-Assessments/Exams Free Text/Narrative Re-Assessment/Exam: 01/28/20 18:07 Patient presents to the ED for the evaluation of her headache. She will have an IV placed, IV fluids, Toradol, Benadryl, Reglan will be given for initial management. 01/28/20 19:23 Patient states her headache is much better, we will let the IV fluids run in, and then discharged home with general recommendations. Departure - Departure Time of Disposition: 19:23 Disposition: Home, Self-Care 01 Condition: Good Clinical Impression: Migraine Qualifiers: Migraine type: without aura Status migrainosus presence: without status migrainosus Intractability: not intractable Qualified Code(s): G43.009 - Migraine without aura, not intractable, without status migrainosus - Discharge Information *PRESCRIPTION DRUG MONITORING PROGRAM REVIEWED*: No *COPY OF PRESCRIPTION DRUG MONITORING REPORT IN PATIENT RILEY: No Instructions: Migraine Headache, [id number] Referrals: Abimbola Hart PA-C [Primary Care Provider] - Forms: ED Department Discharge Additional Instructions: You were evaluated in the ED for your headache. You were given a combination of medications and IV fluid for management. This did seem to provide you pretty good relief of your symptoms. Recommend that you go home and rest in a quiet, darkened room. Try also to keep well hydrated. Please return to the ED if your symptoms should change or worsen. Sepsis Event Note (ED) - Evaluation Sepsis Screening Result: No Definite Risk - Focused Exam Vital Signs: Vital Signs Temp Pulse Resp BP Pulse Ox 01/28/20 17:43 97 F 80 16 136/96 H 99 - My Orders Last 24 Hours: My Active Orders 01/28/20 17:56 Peripheral IV Care [RC] . DIRECTED Sodium Chloride 0.9% [Saline Flush] 10 ml FLUSH ASDIRECTED PRN Peripheral IV Insertion Adult [OM.PC] Routine - Assessment/Plan Last 24 Hours: My Active Orders 01/28/20 17:56 Peripheral IV Care [RC] . DIRECTED Sodium Chloride 0.9% [Saline Flush] 10 ml FLUSH ASDIRECTED PRN Peripheral IV Insertion Adult [OM.PC] Routine
== END 2020-01-28 19:37 | disposition home or self-care (01) ==
LOC: JD.ED 17:28
DX: G43.009 Migraine without aura, not intractable, without status migrainosus (principal); F32.9 Major depressive disorder, single episode, unspecified; Z79.899 Other long term (current) drug therapy
CPT/HCPCS: 96361; 96374; 96375; 99283; J1200; J1885; J2765; J7030

== ENCOUNTER 2020-06-01 14:11 | Emergency (ER) | payer MEDICAID ==
[2020-06-01] MEDS ORDERED: FLU VACC QS2020-21(6MOS UP)/PF 60 MCG/0.5 ML SYRINGE IM ONE (15:00)
[2020-06-01] MEDS ORDERED: Sodium Chloride 0.9% 10 ML Syringe FLUSH PRN (15:15)
--- NOTE | 2020-06-01 15:19 | EDM.PDOC ---
ED HPI GENERAL MEDICAL PROBLEM - General Chief Complaint: Upper Extremity Injury/Pain Stated Complaint: RT SHOULDER PAIN X 5 DAYS Time Seen by Provider: 06/01/20 15:01 Source of Information: Reports: Patient History Limitations: Reports: No Limitations - History of Present Illness INITIAL COMMENTS - FREE TEXT/NARRATIVE: Ms. Morrison is a pleasant 49-year-old woman who now presents to the ED with right upper anterior and posterior chest pain that has been waxing and waning since 05/28/2020. She describes the pain is sharp and stabbing in character. It is made worse with deep breaths, certain movements, bending over, or lying in the right decubitus position. She denies associated dyspnea, cough, fever, or palpitations. The patient states that her pain is similar to when she suffered contusions by falling in her bathtub around 2017. Here in the ED, the patient's initial BP is found to be mildly elevated 141/76, otherwise, she is hemodynamically stable, afebrile, saturating 97% on room air. Other than her right upper chest pain, the patient denies having a recent fever, chills, sore throat, ear pain, nasal or sinus congestion, cough, dyspnea, palpitations, nausea, vomiting, constipation, diarrhea, abdominal pain, urinary symptoms, recent weight gain or weight loss, recent bloody bowel movements or black bowel movements, recent joint aches, headaches, or rashes. The patient's PCP is FRANKIE Snow. She has not received an influenza vaccine this season, but agreed to receive 1 in the ED today. 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: Reports: Other (see below) Other 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: athritis tylenol prn Right Upper Shoulder Pain Score (Numeric/FACES): 8 - Related Data Allergies Allergy/AdvReac Type Severity Reaction Status Date / Time No Known Allergies Allergy Verified 01/28/20 17:45 Home Meds: Home Meds predniSONE [Prednisone] 1 tab PO QPM #6 tablet 06/01/20 [Rx] Past Medical History Genitourinary History: Reports: Other (See Below) (Overactive bladder) [employer] History: Reports: Endometriosis (laparoscopy-confirmed) Musculoskeletal History: Reports: Fracture (left wrist) Psychiatric History: Reports: Depression (untreated), Suicide Attempt Endocrine/Metabolic History: Reports: Obesity/BMI 30+ - Past Surgical History HEENT Surgical History: Reports: Oral Surgery (dental extractions) Female Surgical History: Reports: Section (x 1), Endometrial Ablation, Tubal Ligation Musculoskeletal Surgical History: Reports: Other (See Below) (Left wrist external fixation) Social & Family History - Tobacco Use Tobacco Use Status *Q: Former Tobacco User Years of Tobacco use: 15 Packs/Tins Daily: 0.5 Month/Year Tobacco Last Used: Quit 2003 - Caffeine Use Caffeine Use: Reports: Coffee, Energy Drinks - Alcohol Use Alcohol Use History: Yes Alcohol Use Frequency: Socially - Recreational Drug Use Recreational Drug Use: No - Living Situation & Occupation Living situation: Reports: , with Family (2 kids) 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 ED EXAM, GENERAL - Physical Exam Exam: See Below Exam Limited By: No Limitations General Appearance: Alert, WD/WN, No Apparent Distress Eye Exam: Bilateral Eye: EOMI, Normal Inspection Ears: Normal External Exam, Hearing Grossly Normal Nose: Normal Inspection Throat/Mouth: Normal Inspection, Normal Lips, Normal Voice, No Airway Compromise Head: Atraumatic, Normocephalic Neck: Normal Inspection, Supple, Non-Tender, Full Range of Motion, Other (Pain is induced to the musculature along the right side of the neck, but not to the anterior or posterior right upper chest, when the patient turns her head fully to the right, or extends her head at the neck. No change in symptoms with turning her head fully to the left or tipping her chin to her chest.) Respiratory/Chest: No Respiratory Distress, Lungs Clear, Normal Breath Sounds, No Accessory Muscle Use, Chest Non-Tender (including patient of the anterior upper right chest, the upper trapezius, and the scapular area) Cardiovascular: Normal Peripheral Pulses, Regular Rate, Rhythm, No Gallop, No JVD, No Murmur, No Rub Peripheral Pulses: 3+: Radial (L), Radial (R) GI/Abdominal: Normal Bowel Sounds, Soft, Non-Tender, No Organomegaly, No Distention, No Abnormal Bruit, No Mass Back Exam: Normal Inspection, Full Range of Motion, NT Extremities: Normal Inspection, Normal Range of Motion, Non-Tender (right shoulder), No Pedal Edema, Normal Capillary Refill, Other (No pain with full AROM of the right shoulder) Neurological: Alert, Oriented, Normal Cognition, No Motor/Sensory Deficits Psychiatric: Normal Affect Skin Exam: Warm, Dry, Intact, Normal Color, No Rash Course - Vital Signs Last Recorded V/S: Last Vital Signs Temp 37.2 C 06/01/20 16:49 Pulse 73 06/01/20 16:49 Resp 16 06/01/20 16:49 BP 149/85 H 06/01/20 16:49 Pulse Ox 100 06/01/20 16:49 - Orders/Labs/Meds Orders: Active Orders 24 hr Category Date Time Status Influenza Vaccine Charge [RC] .DISCHARGE Care 06/01/20 14:49 Active Peripheral IV Care [RC] . DIRECTED Care 06/01/20 15:16 Active Sodium Chloride 0.9% [Saline Flush] Med 06/01/20 15:15 Active 10 ml FLUSH ASDIRECTED PRN Peripheral IV Insertion Adult [OM.PC] Routine Oth 06/01/20 15:15 Ordered Medication Orders Sodium Chloride (Saline Flush) 10 ml FLUSH ASDIRECTED PRN PRN Reason: Keep Vein Open Labs: Laboratory Tests 06/01/20 06/01/20 06/01/20 Range/Units 15:45 15:45 15:45 WBC 8.69 (3.98-10.04) K/mm3 RBC 4.64 (3.98-5.22) M/mm3 Hgb 14.1 (11.2-15.7) gm/dl Hct 42.3 (34.1-44.9) % MCV 91.2 (79.4-94.8) fl MCH 30.4 (25.6-32.2) pg MCHC 33.3 (32.2-35.5) g/dl RDW Std Deviation 44.3 (36.4-46.3) fL Plt Count 267 D (182-369) K/mm3 MPV 10.6 (9.4-12.3) fl Neutrophils % (Manual) 73 H (40-60) % Band Neutrophils % 0 (0-10) % Lymphocytes % (Manual) 19 L (20-40) % Atypical Lymphs % 0 % Monocytes % (Manual) 6 (2-10) % Eosinophils % (Manual) 2 (0.7-5.8) % Basophils % (Manual) 0 L (0.1-1.2) Platelet Estimate Adequate RBC Morph Comment Normal D-Dimer, Quantitative 0.43 (0.19-0.50) mg/L Sodium 138 (136-145) mEq/L Potassium 4.3 (3.5-5.1) mEq/L Chloride 105 (98-107) mEq/L Carbon Dioxide 25 (21-32) mEq/L Anion Gap 12.3 (5-15) BUN 18 (7-18) mg/dL Creatinine 0.9 (0.55-1.02) mg/dL Est Cr Clr Drug Dosing 72.34 mL/min Estimated GFR (MDRD) > 60 (>60) mL/min BUN/Creatinine Ratio 20.0 H (14-18) Glucose 99 (74-106) mg/dL Calcium 8.8 (8.5-10.1) mg/dL Magnesium 1.9 (1.8-2.4) mg/dl Total Bilirubin 0.2 (0.2-1.0) mg/dL AST 27 (15-37) U/L ALT 18 (14-59) U/L Alkaline Phosphatase 79 (46-116) U/L Total Protein 7.3 (6.4-8.2) g/dl Albumin 3.3 L (3.4-5.0) g/dl Globulin 4.0 gm/dL Albumin/Globulin Ratio 0.8 L (1-2) Meds: Medications Generic Name Dose Route Start Last Admin Trade Name Freq PRN Reason Stop Dose Admin Sodium Chloride 10 ml 06/01/20 15:15 Saline Flush FLUSH ASDIRECTED PRN Keep Vein Open Discontinued Medications Generic Name Dose Route Start Last Admin Trade Name Freq PRN Reason Stop Dose Admin Influenza Virus Vaccine 1 each 06/01/20 14:49 Pharmacy To Dose - Influenza Vaccine IM 06/01/20 14:50 ONETIME ONE Influenza Virus Vaccine 60 mcg 06/01/20 15:00 06/01/20 16:13 Fluzone Quad [id number] Syringe IM 06/01/20 15:01 60 mcg .ONCE ONE Administration Prednisone 60 mg 06/01/20 16:36 06/01/20 16:48 Prednisone PO 06/01/20 16:37 60 mg ONETIME STA Administration - Re-Assessments/Exams Free Text/Narrative Re-Assessment/Exam: 06/01/20 15:16 As above, the patient has right upper chest pain made worse with deep breaths, bending over, lying in the right decubitus position, and certain movements. She is nontender to palpation of the area. I have ordered a work-up that includes several blood tests, including a D-dimer, and a chest x-ray. 06/01/20 16:28 Two-view chest radiograph appears to be grossly normal. The cardiac silhouette is within normal limits. No pulmonary vascular congestion. No pleural effusions. No focal infiltrate. No pneumothorax. Formal read per the Radiologist pending. The patient's CBC, CMP, magnesium level, and D-dimer are all within normal limits. 06/01/20 16:37 Test results discussed with the patient. Although not a classic presentation, her symptoms are most consistent with cervical radiculopathy, therefore she will be treated with a 7-day course of prednisone. She was advised to not take NSAIDs while taking prednisone. If her symptoms persist, she should follow-up with her PCP to discuss an outpatient MRI of the neck. She will be given an influenza vaccine prior to discharge. Departure - Departure Time of Disposition: 16:38 Disposition: Home, Self-Care 01 Condition: Good Clinical Impression: Right cervical radiculopathy - Discharge Information *PRESCRIPTION DRUG MONITORING PROGRAM REVIEWED*: Not Applicable *COPY OF PRESCRIPTION DRUG MONITORING REPORT IN PATIENT [place]: Not Applicable Prescriptions: predniSONE [Prednisone] 1 tab PO QPM #6 tablet Instructions: Cervical Radiculopathy Referrals: Abimbola Hart PA-C [Primary Care Provider] - Forms: ED Department Discharge Additional Instructions: You were seen in the emergency room for pain to your upper right chest, front and back, since 05/28/2020. Work-up in the ER included several blood tests and a chest x-ray, all of which were unremarkable. You do not have pneumonia. You do not have a blood clot in your lungs. Based on your history, physical exam, and ER tests, the cause of your pain is most likely due to cervical radiculopathy = irritation of nerves exiting your neck. You have been started on the steroid prednisone, and a prescription for prednisone has been sent to the [facility] located in the [employer] store. Take 1 tablet of prednisone every evening, starting tomorrow evening, 06/02/2020, as prescribed. As discussed, it is very important that you not take an NSAID, such as ibuprofen (Advil, Motrin) or naproxen (Aleve) if you are taking prednisone. You may take [id number] acetaminophen (Tylenol). If your symptoms persist despite a course of prednisone, we recommend that you follow-up with your PCP, FRANKIE Snow, for further evaluation. If any other problems, please do not hesitate to return to the ER. You were given an influenza vaccine during your ER visit. Sepsis Event Note (ED) - Evaluation Sepsis Screening Result: No Definite Risk - Focused Exam Vital Signs: Vital Signs Temp Pulse Resp BP Pulse Ox 06/01/20 16:49 37.2 C 73 16 149/85 H 100 06/01/20 14:50 36.7 C 80 20 141/76 H 97 - My Orders Last 24 Hours: My Active Orders 06/01/20 14:49 Influenza Vaccine Charge [RC] .DISCHARGE 06/01/20 15:15 Sodium Chloride 0.9% [Saline Flush] 10 ml FLUSH ASDIRECTED PRN Peripheral IV Insertion Adult [OM.PC] Routine 06/01/20 15:16 Peripheral IV Care [RC] . DIRECTED - Assessment/Plan Last 24 Hours: My Active Orders 06/01/20 14:49 Influenza Vaccine Charge [RC] .DISCHARGE 06/01/20 15:15 Sodium Chloride 0.9% [Saline Flush] 10 ml FLUSH ASDIRECTED PRN Peripheral IV Insertion Adult [OM.PC] Routine 06/01/20 15:16 Peripheral IV Care [RC] . DIRECTED
[2020-06-01] MEDS ORDERED: Orphenadrine 100 MG Tab.ER PO STA (16:29)
--- NOTE | 2020-06-01 16:33 | CR ---
Chest: 2 views of the chest were obtained. Comparison: No previous chest imaging is available. Heart size and mediastinum are normal. Lungs are clear. No pneumothorax is seen. Slight scoliosis is noted within the spine. No acute osseous finding is seen. Impression: 1. Nothing acute is seen. Diagnostic code #2
[2020-06-01] MEDS ORDERED: predniSONE 20 MG Tab PO STA (16:36)
[2020-06-01 16:49] VITALS: BP 149/85; PULSE 73
== END 2020-06-01 16:56 | disposition home or self-care (01) ==
LOC: JD.ED 14:11
DX: M54.12 Radiculopathy, cervical region (principal); E66.9 Obesity, unspecified; Z68.36 Body mass index [BMI] 36.0-36.9, adult; Z87.891 Personal history of nicotine dependence; Z23 Encounter for immunization
CPT/HCPCS: 36415; 71046; 80053; 83735; 85007; 85027; 85379; 90471; 90686; 99285; J7512; G0008

== ENCOUNTER 2020-09-15 12:46 | Emergency (ER) | payer MEDICAID ==
--- NOTE | 2020-09-15 13:27 | EDM.PDOC ---
ED HPI GENERAL MEDICAL PROBLEM - General Chief Complaint: Abdominal Pain Stated Complaint: STOMACH PAIN Time Seen by Provider: 09/15/20 13:27 Source of Information: Reports: Patient History Limitations: Reports: No Limitations - History of Present Illness INITIAL COMMENTS - FREE TEXT/NARRATIVE: 49-year-old female presents to the ED with diffuse periumbilical and lower abdominal pain felt across both lower quadrants. Associated watery yellow diarrhea without blood. Patient has been living with this disorder for 3 to 5 years. She takes Imodium anywhere between 4 and 6 tablets daily to stem the abdominal cramping pain. She has been labeled with irritable bowel syndrome. She did try an antidepressant I believe and amitriptyline in the past with no success. She has never had a CT scan of her abdomen and she is never had a colonoscopy. She has had no GI consult to identify whether or not she has a malabsorption disorder. She reports her weight is stable. She states there is really no foods that she avoids because of will make the abdominal pain worse. Previous abdominal surgery is that of a laparoscopic procedure which identified endometriosis. She also is known to have fibroids of the uterus. She had a nicked bowel at the time of the laparoscopic procedure which was repaired primarily. She never has any blood in the stool which essentially rules out ulcerative colitis. No associated fever chills nausea or vomiting. She states currently the only medication she is using is [id number] Imodium. She is not taking any prescription medications. Onset: Other (Running problem dating back greater than 3 to 4 years) Duration: Chronic, Getting Worse Location: Reports: Abdomen (Diffuse periumbilical and lower quadrant abdominal pain which is strongly colicky) Quality: Reports: Ache (.), Other Severity: Severe (Strong sharp stabbing crampy colicky pain at times) Improves with: Reports: None Worsens with: Reports: Eating Context: Denies: Activity, Exercise, Lifting, Sick Contact, Trauma, Other Associated Symptoms: Reports: No Other Symptoms, Loss of Appetite, Malaise. 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) (Imodium anywhere between 4 and 6 tablets daily.) Left Abdomen Pain Score (Numeric/FACES): 8 - Related Data Allergies Allergy/AdvReac Type Severity Reaction Status Date / Time No Known Allergies Allergy Verified 01/28/20 17:45 Home Meds: Home Meds Dicyclomine [Bentyl] 20 mg PO Q6H PRN #15 tablet 09/15/20 [Rx] Past Medical History Cardiovascular History: Reports: Other (See Below) Other Cardiovascular History: prolapsed mitral valve Genitourinary History: Reports: Other (See Below) (Overactive bladder) 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 Musculoskeletal History: Reports: Fracture Psychiatric History: Reports: Depression, Suicide Attempt Endocrine/Metabolic History: Reports: Obesity/BMI 30+ - Past Surgical History HEENT Surgical History: Reports: Oral Surgery Female Surgical History: Reports: Section, Endometrial Ablation, Tubal Ligation Social & Family History - Family History Family Medical History: No Pertinent Family History - Tobacco Use Tobacco Use Status *Q: Never Tobacco User - Caffeine Use Caffeine Use: Reports: Coffee - Recreational Drug Use Recreational Drug Use: No - Living Situation & Occupation Living situation: Reports: , with Family (2 kids) Occupation: Employed ([employer]) ED ROS GENERAL - Review of Systems Review Of Systems: See Below Constitutional: Reports: Malaise, Weakness, Fatigue, Decreased Appetite. Denies: Fever, Chills, Weight Loss HEENT: Reports: No Symptoms Respiratory: Reports: No Symptoms Cardiovascular: Reports: No Symptoms Endocrine: Reports: No Symptoms GI/Abdominal: Reports: Abdominal Pain, Diarrhea (Diarrhea usually 6 times daily.), Stool Incontinence. Denies: Black Stool, Bloody Stool, Difficulty Swallowing, Hematemesis, Hematochezia, Melena, Nausea, Vomiting (Vaginally. She will have a sense of urgency with stool incontinence) : Reports: No Symptoms Musculoskeletal: Reports: No Symptoms Skin: Reports: No Symptoms Neurological: Reports: No Symptoms Psychiatric: Reports: No Symptoms Hematologic/Lymphatic: Reports: No Symptoms Immunologic: Reports: No Symptoms ED EXAM, GI/ABD - Physical Exam Exam: See Below Exam Limited By: No Limitations General Appearance: Alert, WD/WN, Mild Distress, Other (Temperature is 36.3 degrees. Pulse is 70 and sinus respiratory is 20 with O2 sats of 99% room air BP mildly elevated 155/85.) Eyes: Bilateral: Normal Appearance (No blepharal pallor or scleral icterus.) Throat/Mouth: Normal Inspection, Normal Lips, Normal Teeth, Normal Oropharynx Head: Atraumatic, Normocephalic Neck: Normal Inspection, Supple, Non-Tender, Full Range of Motion. No: Lymphadenopathy (L), Lymphadenopathy (R) Respiratory/Chest: No Respiratory Distress, Lungs Clear, Normal Breath Sounds, No Accessory Muscle Use, Chest Non-Tender Cardiovascular: Normal Peripheral Pulses, Regular Rate, Rhythm, No Edema, No Gallop, No Murmur, No Rub GI/Abdominal Exam: Normal Bowel Sounds, Soft, No Organomegaly, No Abnormal Bru it, No Mass, Pelvis Stable, Tender. No: Guarding, Rigid (Tender left lower quadrant of the abdomen without rebound or guarding.), Rebound Back Exam: Normal Inspection, Full Range of Motion. No: CVA Tenderness (L), CVA Tenderness (R) Extremities: Normal Inspection, Normal Range of Motion, Non-Tender, No Pedal Edema Neurological: Alert, Oriented, CN II-XII Intact, Normal Cognition Psychiatric: Normal Affect, Normal Mood Skin Exam: Warm, Dry, Intact, Normal Color, No Rash Lymphatic: No Adenopathy Course - Vital Signs Last Recorded V/S: Last Vital Signs Temp 36.8 C 09/15/20 16:10 Pulse 75 09/15/20 16:10 Resp 16 09/15/20 16:10 BP 150/88 H 09/15/20 16:10 Pulse Ox 99 09/15/20 13:01 - Orders/Labs/Meds Orders: Active Orders 24 hr Category Date Time Status GLIADIN IGG/IGA AB PROF, EIA [REF] Routine Lab 09/15/20 13:50 Received TTG IGA/G [REF] Stat Lab 09/15/20 13:50 Received UA W/CARLOTA RFLX IF INDICATED [URIN] Stat Lab 09/15/20 15:15 Received Labs: Laboratory Tests 09/15/20 09/15/20 Range/Units 13:50 13:50 WBC 8.76 (3.98-10.04) K/mm3 RBC 4.44 (3.98-5.22) M/mm3 Hgb 13.7 (11.2-15.7) gm/dl Hct 41.3 (34.1-44.9) % MCV 93.0 (79.4-94.8) fl MCH 30.9 (25.6-32.2) pg MCHC 33.2 (32.2-35.5) g/dl RDW Std Deviation 43.5 (36.4-46.3) fL Plt Count 296 (182-369) K/mm3 MPV 10.6 (9.4-12.3) fl Neut % (Auto) 66.6 (34.0-71.1) % Lymph % (Auto) 25.0 (19.3-51.7) % [place] % (Auto) 6.2 (4.7-12.5) % Eos % (Auto) 1.6 (0.7-5.8) Baso % (Auto) 0.3 (0.1-1.2) % Neut # (Auto) 5.83 (1.56-6.13) K/mm3 Lymph # (Auto) 2.19 (1.18-3.74) K/mm3 [place] # (Auto) 0.54 H (0.24-0.36) K/mm3 Eos # (Auto) 0.14 (0.04-0.36) K/mm3 Baso # (Auto) 0.03 (0.01-0.08) K/mm3 Sodium 141 (136-145) mEq/L Potassium 3.9 (3.5-5.1) mEq/L Chloride 105 (98-107) mEq/L Carbon Dioxide 26 (21-32) mEq/L Anion Gap 13.9 (5-15) BUN 16 (7-18) mg/dL Creatinine 0.8 (0.55-1.02) mg/dL Est Cr Clr Drug Dosing 81.38 mL/min Estimated GFR (MDRD) > 60 (>60) mL/min BUN/Creatinine Ratio 20.0 H (14-18) Glucose 95 (74-106) mg/dL Calcium 8.9 (8.5-10.1) mg/dL Total Bilirubin 0.4 (0.2-1.0) mg/dL AST 15 (15-37) U/L ALT 24 (14-59) U/L Alkaline Phosphatase 75 (46-116) U/L C-Reactive Protein 1.2 H* (<1.0) mg/dL Total Protein 7.4 (6.4-8.2) g/dl Albumin 3.5 (3.4-5.0) g/dl Globulin 3.9 gm/dL Albumin/Globulin Ratio 0.9 L (1-2) Lipase 89 (73-393) U/L Meds: Medications Discontinued Medications Generic Name Dose Route Start Last Admin Trade Name Freq PRN Reason Stop Dose Admin Diatrizoate Meglum/Diatrizoate Sod 120 ml 09/15/20 14:10 09/15/20 14:54 Diatrizoate Meglumine/Diatrizoate Sodium 37% 120 Ml Bottle PO 09/15/20 14:11 45 ml ONETIME ONE Administration Hydromorphone HCl 0.5 mg 09/15/20 13:37 09/15/20 13:53 Hydromorphone 0.5 Mg/0.5 Ml Syringe IVPUSH 09/15/20 13:38 0.5 mg ONETIME ONE Administration Dextrose/Sodium Chloride 1,000 mls @ 500 mls/hr 09/15/20 13:45 09/15/20 13:55 Dextrose 5%-Normal Saline IV 500 mls/hr ASDIRECTED GUS Administration Iopamidol 100 ml 09/15/20 14:10 09/15/20 14:53 Iopamidol 612 Mg/Ml 100 Ml Bottle IVPUSH 09/15/20 14:11 100 ml ONETIME ONE Administration Iopamidol 50 ml 09/15/20 14:10 09/15/20 14:54 Iopamidol 612 Mg/Ml 50 Ml Sdv IVPUSH 09/15/20 14:11 50 ml ONETIME ONE Administration Ondansetron HCl 4 mg 09/15/20 13:38 09/15/20 13:51 Ondansetron 4 Mg/2 Ml Sdv IVPUSH 09/15/20 13:39 4 mg ONETIME ONE Administration Sodium Chloride 10 ml 09/15/20 14:10 09/15/20 14:54 Sodium Chloride 0.9% 10 Ml Syringe FLUSH 10 ml ONETIME PRN Administration IV FLUSH - Radiology Interpretation Free Text/Narrative:: 49-year-old female presents to the ED with diffuse periumbilical and lower abdominal pain felt in both lower quadrants. She has chronic associated diarrhea and has been labeled with irritable bowel syndrome. She never undergone any investigations by gastroenterology to assess for malabsorption issues and she is never had a CT scan of her abdomen to rule out Crohn's disease. She never has any blood in her stool which would rule out significant ulcerative colitis. She came in today because of increased abdominal pain. She lives on Imodium tablets on a daily basis uses anywhere between 4 and 6 tablets to try and stem the diarrhea. She is not losing any weight. No associated fever chills nausea or vomiting. Previous abdominal surgery is laparoscopic surgery which identified endometriosis and apparently nicked her bowel in the process. She is also had a . She is 7 para 6. Lost a set of twins in early gestation. And she will have CT of the abdomen and pelvis with oral and IV contrast. Routine labs performed including testing for gluten enteropathy or celiac disease which are send out tests. Some point time she likely needs a colonoscopy. Follow-up with gastroenterology to look for other causes of malabsorption. Dose intolerance should be ruled out etc. - Re-Assessments/Exams Free Text/Narrative Re-Assessment/Exam: 09/15/20 14:27 White count is 8.76. Differential is 66% neutrophils. Hemoglobin is 13.7 with hematocrit of 41.3 platelet count is 296,000. Nothing in the hematology suggest malabsorption 09/15/20 15:13 Sodium is 141 with a potassium of 3.9. Chloride is 105 with a bicarb of 26. Anion gap is 13.9. BUN is 16 with a creatinine of 0.8. GFR is greater than 60. Glucose is 95 with a calcium of 8.9. Liver function normal C- reactive protein is 1.2. Total protein 7.4 with an albumin fraction of 3.5. Serum lipase is normal at 89. 09/15/20 15:27 CT of the abdomen has been performed with oral and IV contrast. There are no previous CTs to compare to. Visualized portions of the lung bases show nothing acute. Liver contains no focal parenchymal abnormalities. Spleen appears to be within normal limits. Adrenal glands show no nodules. Pancreas shows no discrete abnormality. Kidneys show symmetric contrast enhancement with no hydronephrosis or discrete masses. Delayed images show contrast within the distal ureters and within the urinary bladder.Aorta shows no aneurysm. No retroperitoneal adenopathy or mesenteric abnormalities are seen. Appendix is seen which is normal. No pelvic mass or adenopathy is noted. No periumbilical hernia seen. Bone window settings were reviewed which show minimal degenerative change within the spine. Nothing acute is appreciated on CT of the abdomen and pelvis. Departure - Departure Time of Disposition: 15:47 Disposition: Home, Self-Care 01 Condition: Fair Clinical Impression: Chronic diarrhea Diarrhea Qualifiers: Diarrhea type: unspecified type Qualified Code(s): R19.7 - Diarrhea, unspecified - Discharge Information *PRESCRIPTION DRUG MONITORING PROGRAM REVIEWED*: Not Applicable *COPY OF PRESCRIPTION DRUG MONITORING REPORT IN PATIENT RILEY: Not Applicable Prescriptions: Dicyclomine [Bentyl] 20 mg PO Q6H PRN #15 tablet PRN Reason: Abdominal cramps/diarrhea Instructions: Diarrhea, Adult Referrals: Abimbola Hart PA-C [Primary Care Provider] - Forms: ED Department Discharge Additional Instructions: Evaluation in the emergency room today in regards to chronic diarrhea for a lengthy period of time which is not been fully investigated. You are using Imodium on a as needed basis which will slow down the bowel motility and stop cramping but usually the cramps are much worse once the medicine wears off. I did start some of the investigations today in terms of sending blood away for celiac disease antibodies. The results will be available in about 3 to 4 days time and I will try and give you a call once I see these results. CT scan of the abdomen and pelvis today done with oral and IV contrast does not reveal any abnormalities within the abdomen or pelvis. Gallbladder is still present and contains no stones. Sometimes about gallbladder malfunction where it secreting bile salts into the intestine overnight can cause a chronic diarrhea is called bile salt current viruses. There is a medicine called Colestid 1 g taken every night at bedtime can sometimes bring it under control. I would like you to try Bentyl 20 mg tablet first thing in the morning and then every 6 hours as needed for relief of diarrhea stools as needed. I would also like you to try and follow very closely a lactose-free diet. You can buy Lactaid milk which has about 97% of the lactose removed from it to see if lactose intolerance is causing your diarrhea. Follow-up with Abimbola Hart in this regard. A colonoscopy is in order to rule out any abnormalities within the colon that can cause diarrhea such as a villous adenoma which is a benign growth for the most part of the colon. It is unlikely that you have Crohn's disease or ulcerative colitis since there is never any blood in the diarrhea. It appears that you are suffering some form of malnutrition syndrome. Sepsis Event Note (ED) - Evaluation Sepsis Screening Result: No Definite Risk - Focused Exam Vital Signs: Vital Signs Temp Pulse Resp BP Pulse Ox 09/15/20 16:10 36.8 C 75 16 150/88 H 09/15/20 13:01 36.3 C 78 20 155/85 H 99 - My Orders Last 24 Hours: My Active Orders 09/15/20 13:50 GLIADIN IGG/IGA AB PROF, EIA [REF] Routine TTG IGA/G [REF] Stat 09/15/20 15:15 UA W/CARLOTA RFLX IF INDICATED [URIN] Stat - Assessment/Plan Last 24 Hours: My Active Orders 09/15/20 13:50 GLIADIN IGG/IGA AB PROF, EIA [REF] Routine TTG IGA/G [REF] Stat 09/15/20 15:15 UA W/CARLOTA RFLX IF INDICATED [URIN] Stat
[2020-09-15] MEDS ORDERED: HYDROmorphone 0.5 MG/0.5 ML Syringe IVPUSH ONE (13:37)
[2020-09-15] MEDS ORDERED: Ondansetron 4 MG/2 ML SDV IVPUSH ONE (13:38)
[2020-09-15] MEDS ORDERED: Dextrose 5%-0.9% NaCl 1,000 ML IV SCH (13:45)
[2020-09-15] MEDS ORDERED: Diatrizoate Meglumine/Diatrizoate Sodium 37% 120 ML Bottle PO ONE (14:10)
[2020-09-15] MEDS ORDERED: Iopamidol 612 MG/ML 50 ML SDV IVPUSH ONE (14:10)
[2020-09-15] MEDS ORDERED: Iopamidol 612 MG/ML 100 ML Bottle IVPUSH ONE (14:10)
[2020-09-15] MEDS ORDERED: Sodium Chloride 0.9% 10 ML Syringe FLUSH PRN (14:10)
--- NOTE | 2020-09-15 15:17 | CT ---
CT abdomen and pelvis Technique: Multiple axial sections were obtained from above the dome of the diaphragm inferiorly through the pubic symphysis. Intravenous and oral contrast was utilized. Delayed images were also obtained through the bladder. Reconstructed coronal and sagittal images were also obtained. Comparison: No prior CT abdomen and pelvis exam is available. Findings: Visualized lung bases show nothing acute. Liver contains no focal parenchymal abnormality. Spleen appears within normal limits. Adrenal glands show no nodule. Pancreas shows no discrete abnormality. Kidneys show symmetric contrast enhancement with no hydronephrosis or discrete mass. Delayed images show contrast within the distal ureters and within the bladder. Aorta shows no aneurysm. No retroperitoneal adenopathy or mesenteric abnormalities are seen. Appendix is seen which is normal. No pelvic mass or adenopathy is noted. No periumbilical hernia is seen. Bone window settings were reviewed which show minimal degenerative change within the spine. Impression: 1. Nothing acute is appreciated on CT study of the abdomen and pelvis. Diagnostic code #2
[2020-09-15 16:26] VITALS: BP 150/88; PULSE 75
== END 2020-09-15 16:10 | disposition home or self-care (01) ==
LOC: JD.ED 12:46
DX: R19.7 Diarrhea, unspecified (principal); R10.33 Periumbilical pain; R53.81 Other malaise; R53.1 Weakness; R53.83 Other fatigue; R63.0 Anorexia; E66.9 Obesity, unspecified; Z68.37 Body mass index [BMI] 37.0-37.9, adult
CPT/HCPCS: 36415; 74177; 80053; 81003; 83516; 83690; 85025; 86140; 96374; 96375; 99284; J1170; J2405; J7042; Q9963; Q9967; 99283

== ENCOUNTER 2020-12-28 17:00 | Emergency (ER) | payer MEDICAID ==
[2020-12-28] MEDS ORDERED: Metoclopramide 10 MG/2 ML SDV IVPUSH ONE (17:36)
[2020-12-28] MEDS ORDERED: Sodium Chloride 0.9% 10 ML Syringe FLUSH PRN (17:36)
[2020-12-28] MEDS ORDERED: Ketorolac 30 MG/ML SDV IVPUSH ONE (17:36)
[2020-12-28] MEDS ORDERED: diphenhydrAMINE 50 MG/ML SDV IVPUSH ONE (17:36)
[2020-12-28] MEDS ORDERED: Sodium Chloride 0.9% 1,000 ML IV ONE (17:36)
--- NOTE | 2020-12-28 17:58 | EDM.PDOC ---
ED HPI GENERAL MEDICAL PROBLEM - General Chief Complaint: Headache Stated Complaint: HEADACHE Time Seen by Provider: 12/28/20 17:26 Source of Information: Reports: Patient, RN Notes Reviewed History Limitations: Reports: No Limitations - History of Present Illness INITIAL COMMENTS - FREE TEXT/NARRATIVE: Patient is a 50-year-old female who presents to the ER for the evaluation of her migraine headache. Patient states that this is been present for a couple days, and she is having associated nausea. Took 2 doses of her Imitrex, this did not seem to help. Patient notes she is light sensitive and sound sensitive, and she is not really been able to eat or drink much, she has been quite nauseated. Patient states that she has got headaches like this in the past, but this is pretty intense for today's purposes. She did not take any other medications other than Imitrex. Primary care provider is Abimbola Hart. Patient denies any other sick-like symptoms, fever/chills, cough/shortness of breath, nausea/vomiting/diarrhea. Headache Pain Score (Numeric/FACES): 10 - Related Data Allergies Allergy/AdvReac Type Severity Reaction Status Date / Time No Known Allergies Allergy Verified 12/28/20 17:23 Home Meds: Home Meds . 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 Musculoskeletal History: Reports: Fracture Neurological History: Reports: Headaches, Chronic, Migraines Psychiatric History: Reports: Depression, Suicide Attempt Endocrine/Metabolic History: Reports: Obesity/BMI 30+ - Past Surgical History HEENT Surgical History: Reports: Oral Surgery Female Surgical History: Reports: Section, Endometrial Ablation, Tubal Ligation Social & Family History - Family History Family Medical History: No Pertinent Family History - Tobacco Use Tobacco Use Status *Q: Never Tobacco User - Caffeine Use Caffeine Use: Reports: Coffee, Soda - Recreational Drug Use Recreational Drug Use: No - Living Situation & Occupation Living situation: Reports: , with Family (2 kids) Occupation: Employed ([employer]) ED ROS GENERAL - Review of Systems Review Of Systems: Comprehensive ROS is negative, except as noted in HPI. - Physical Exam Exam: See Below Exam Limited By: No Limitations General Appearance: Alert, WD/WN, No Apparent Distress Eye Exam: Bilateral Eye: EOMI, Normal Inspection, PERRL Respiratory/Chest: No Respiratory Distress, Lungs Clear, Normal Breath Sounds, No Accessory Muscle Use, Chest Non-Tender Cardiovascular: Normal Peripheral Pulses, Regular Rate, Rhythm, No Edema GI/Abdominal: Normal Bowel Sounds, Soft, Non-Tender, No Distention, No Mass Neuro Exam (Abbreviated): Alert, Oriented, Normal Cognition, No Motor/Sensory Deficits Extremities: Normal Inspection, Normal Capillary Refill Psychiatric: Normal Affect, Normal Mood Skin Exam: Warm, Dry, Intact, Normal Color, No Rash Course - Vital Signs Last Recorded V/S: Last Vital Signs Temp 97.2 F 12/28/20 17:20 Pulse 77 12/28/20 17:20 Resp 18 12/28/20 17:20 BP 168/111 H 12/28/20 17:20 Pulse Ox 98 12/28/20 17:20 - Orders/Labs/Meds Orders: Active Orders 24 hr Category Date Time Status Peripheral IV Care [RC] . DIRECTED Care 12/28/20 17:36 Ordered Sodium Chloride 0.9% [Saline Flush] Med 12/28/20 17:36 Ordered 10 ml FLUSH ASDIRECTED PRN Peripheral IV Insertion Adult [OM.PC] Routine Oth 12/28/20 17:36 Ordered Medication Orders Sodium Chloride (Sodium Chloride 0.9% 10 Ml Syringe) 10 ml FLUSH ASDIRECTED PRN PRN Reason: Keep Vein Open Last Admin: 12/28/20 18:16 Dose: 10 ml Documented by: Meds: Medications Generic Name Dose Route Start Last Admin Trade Name Freq PRN Reason Stop Dose Admin Sodium Chloride 10 ml 12/28/20 17:36 12/28/20 18:16 Sodium Chloride 0.9% 10 Ml Syringe FLUSH 10 ml ASDIRECTED PRN Administration Keep Vein Open Discontinued Medications Generic Name Dose Route Start Last Admin Trade Name Freq PRN Reason Stop Dose Admin Diphenhydramine HCl 25 mg 12/28/20 17:36 12/28/20 18:14 Diphenhydramine 50 Mg/Ml Sdv IVPUSH 12/28/20 17:37 25 mg ONETIME ONE Administration Sodium Chloride 1,000 mls @ 999 mls/hr 12/28/20 17:36 12/28/20 18:13 Normal Saline IV 12/28/20 18:36 999 mls/hr ASDIRECTED ONE Administration Ketorolac Tromethamine 30 mg 12/28/20 17:36 12/28/20 18:14 Ketorolac 30 Mg/Ml Sdv IVPUSH 12/28/20 17:37 30 mg ONETIME ONE Administration Metoclopramide HCl 10 mg 12/28/20 17:36 12/28/20 18:13 Metoclopramide 10 Mg/2 Ml Sdv IVPUSH 12/28/20 17:37 10 mg ONETIME ONE Administration - Re-Assessments/Exams Free Text/Narrative Re-Assessment/Exam: 12/28/20 17:55 Patient presents to the ER for the evaluation for her migraine headache, we will go ahead get IV started get her some pain meds nausea meds and some fluids see if this helps relieve her headache. 12/28/20 19:00 Patient was reassessed at bedside, states she is feeling much better, we will go ahead and discharge her home with general recommendations. Departure - Departure Time of Disposition: 19:01 Disposition: Home, Self-Care 01 Condition: Good Clinical Impression: Headache Qualifiers: Headache type: other headache syndrome Qualified Code(s): G44.89 - Other headache syndrome - Discharge Information *PRESCRIPTION DRUG MONITORING PROGRAM REVIEWED*: No *COPY OF PRESCRIPTION DRUG MONITORING REPORT IN PATIENT RILEY: No Referrals: Abimbola Hart PA-C [Primary Care Provider] - Forms: ED Department Discharge Additional Instructions: You were evaluated in the ED for your headache. You were given a combination of medications and IV fluid for management. This did seem to provide you pretty good relief of your symptoms. Recommend that you go home and rest in a quiet, darkened room. Try also to keep well hydrated. Please return to the ED if your symptoms should change or worsen. Sepsis Event Note (ED) - Evaluation Sepsis Screening Result: No Definite Risk - Focused Exam Vital Signs: Vital Signs Temp Pulse Resp BP Pulse Ox 12/28/20 17:20 97.2 F 77 18 168/111 H 98 - My Orders Last 24 Hours: My Active Orders 12/28/20 17:36 Peripheral IV Care [RC] . DIRECTED Sodium Chloride 0.9% [Saline Flush] 10 ml FLUSH ASDIRECTED PRN Peripheral IV Insertion Adult [OM.PC] Routine - Assessment/Plan Last 24 Hours: My Active Orders 12/28/20 17:36 Peripheral IV Care [RC] . DIRECTED Sodium Chloride 0.9% [Saline Flush] 10 ml FLUSH ASDIRECTED PRN Peripheral IV Insertion Adult [OM.PC] Routine
[2020-12-28 21:19] VITALS: BP 147/82; PULSE 71
== END 2020-12-28 19:16 | disposition home or self-care (01) ==
LOC: JD.ED 17:00
DX: G44.89 Other headache syndrome (principal); E66.9 Obesity, unspecified; Z68.38 Body mass index [BMI] 38.0-38.9, adult
CPT/HCPCS: 96374; 96375; 99283; J1200; J1885; J2765; J7030

== ENCOUNTER 2021-06-01 10:08 | Emergency (ER) | payer MEDICAID ==
[2021-06-01 10:25] VITALS: BP 182/95; PULSE 76
[2021-06-01] MEDS ORDERED: Ketorolac 30 MG/ML SDV IVPUSH ONE (10:39)
[2021-06-01] MEDS ORDERED: diphenhydrAMINE 50 MG/ML SDV IVPUSH ONE (10:39)
[2021-06-01] MEDS ORDERED: Metoclopramide 10 MG/2 ML SDV IVPUSH ONE (10:40)
[2021-06-01] MEDS ORDERED: Sodium Chloride 0.9% 1,000 ML IV ONE (10:40)
--- NOTE | 2021-06-01 10:52 | EDM.PDOC ---
ED HPI GENERAL MEDICAL PROBLEM - General Chief Complaint: Headache Stated Complaint: MIGRANE Time Seen by Provider: 06/01/21 10:40 Source of Information: Reports: Patient History Limitations: Reports: No Limitations - History of Present Illness INITIAL COMMENTS - FREE TEXT/NARRATIVE: With history of migraine headaches presents with the same. She usually takes Imitrex and she took some yesterday but did not help. She had onset of the headache initially on of last week. She was able to get to the holidays actually as she was off but continued to have the headache problem. Usually starts in the occipital area and moves forward. Dull achy headache fairly constant nothing that thunderclap or the worst headache of her life. Does associate with some photophobia and nausea but no vomiting. Has this similar type headache in the past and has required IV fluids and medications. Patient denies any fevers chills or sweats no double vision or blurry vision she does wear contact lenses. No ringing in the ears or hearing problems no sinus pain no sore throat or runny nose no neck pain or stiffness no chest pain shortness of breath or breathing problems. Nauseated but no vomiting or diarrhea no menstrual cycles she had ablation for endometriosis. No other specific muscle aches or pains no fainting spell or lightheadedness or dizziness no focal weakness. 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 - Related Data Allergies Allergy/AdvReac Type Severity Reaction Status Date / Time No Known Allergies Allergy Verified 06/01/21 10:25 Home Meds: Home Meds Naproxen [Naprosyn] 500 mg PO BIDAC PRN #20 tablet 06/01/21 [Rx] SUMAtriptan [Imitrex] 50 mg PO DAILY 06/01/21 [History] Past Medical History Cardiovascular History: Reports: Other (See Below) Other Cardiovascular History: prolapsed mitral valve Genitourinary History: Reports: Other (See Below) 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 Musculoskeletal History: Reports: Fracture Neurological History: Reports: Headaches, Chronic, Migraines Psychiatric History: Reports: Depression, Suicide Attempt Endocrine/Metabolic History: Reports: Obesity/BMI 30+ - Past Surgical History HEENT Surgical History: Reports: Oral Surgery Female Surgical History: Reports: Section, Endometrial Ablation, Tubal Ligation Musculoskeletal Surgical History: Reports: Other (See Below) Social & Family History - Family History Family Medical History: No Pertinent Family History - Tobacco Use Tobacco Use Status *Q: Never Tobacco User - Caffeine Use Caffeine Use: Reports: Energy Drinks - Recreational Drug Use Recreational Drug Use: No - Living Situation & Occupation Living situation: Reports: , with Family (2 kids) 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 Denies: Fever, Chills, Malaise, Fatigue, Night Sweats, Diaphoresis HEENT: Reports: Contact Lenses. Denies: Ear Pain, Rhinitis, Sinus Problem, Throat Pain, Vertigo, Vision Change Respiratory: Reports: No Symptoms Cardiovascular: Reports: No Symptoms. Denies: Chest Pain, Lightheadedness, Syncope GI/Abdominal: Reports: Decreased Appetite, Nausea. Denies: Abdominal Pain, Constipation, Diarrhea, Vomiting : Denies: Dysuria, Flank Pain, Frequency, Hematuria, Urgency Musculoskeletal: Reports: No Symptoms. Denies: Neck Pain Skin: Reports: No Symptoms Neurological: Reports: Headache. Denies: Confusion, Dizziness, Numbness, Paresthesia, Pre-Existing Deficit, Seizure, Syncope, Tingling, Trouble Speaking, Difficulty Walking, Weakness, Change in Speech, Gait Disturbance Psychiatric: Reports: No Symptoms - Physical Exam Exam: See Below Exam Limited By: No Limitations General Appearance: Alert, WD/WN, No Apparent Distress Eye Exam: Bilateral Eye: EOMI, PERRL Ears: Hearing Grossly Normal Throat/Mouth: Normal Inspection, Normal Lips, Normal Teeth, Normal Gums, Normal Oropharynx, Normal Voice, No Airway Compromise Head Exam: Atraumatic, Normocephalic Neck: Normal Inspection, Supple, Non-Tender, Full Range of Motion. No: Limited Range of Motion Respiratory/Chest: No Respiratory Distress, Lungs Clear, Normal Breath Sounds, No Accessory Muscle Use, Chest Non-Tender Cardiovascular: Normal Peripheral Pulses, Regular Rate, Rhythm, No Edema GI/Abdominal: Normal Bowel Sounds, Soft, Non-Tender Neuro Exam (Abbreviated): Alert, Oriented, CN II-XII Intact, Normal Cognition, Normal Gait, No Motor/Sensory Deficits. No: Confused, Disoriented Back Exam: Normal Inspection. No: CVA Tenderness (L), CVA Tenderness (R) Extremities: Normal Inspection Psychiatric: Normal Affect, Normal Mood Skin Exam: Warm, Dry Course - Vital Signs Text/Narrative:: Patient has headache not the worst headache of her life not thunderclap history of headaches in the past no car monoxide exposure no change or pattern of the headaches no red flags for intracranial hemorrhage meningitis encephalitis. Does not seem to have any flulike symptoms does not seem like it would be influenza Covid at present she does appear mildly dehydrated. Last Recorded V/S: Last Vital Signs Temp 96.5 F L 06/01/21 10:22 Pulse 76 06/01/21 10:22 Resp 18 06/01/21 10:22 BP 182/95 H 06/01/21 10:22 Pulse Ox 97 06/01/21 10:22 - Orders/Labs/Meds Meds: Medications Discontinued Medications Generic Name Dose Route Start Last Admin Trade Name Anca PRN Reason Stop Dose Admin Diphenhydramine HCl 25 mg 06/01/21 10:39 06/01/21 10:48 Diphenhydramine 50 Mg/Ml Sdv IVPUSH 06/01/21 10:40 25 mg ONETIME ONE Administration Sodium Chloride 1,000 mls @ 999 mls/hr 06/01/21 10:40 06/01/21 10:48 Normal Saline IV 06/01/21 11:40 999 mls/hr ONETIME ONE Administration Ketorolac Tromethamine 30 mg 06/01/21 10:39 06/01/21 10:49 Ketorolac 30 Mg/Ml Sdv IVPUSH 06/01/21 10:40 30 mg ONETIME ONE Administration Metoclopramide HCl 10 mg 06/01/21 10:40 06/01/21 10:49 Metoclopramide 10 Mg/2 Ml Sdv IVPUSH 06/01/21 10:41 10 mg ONETIME ONE Administration - Re-Assessments/Exams Free Text/Narrative Re-Assessment/Exam: 06/01/21 11:47 Patient feeling much better will discharge home follow-up and return precautions given prescribe Naprosyn for breakthrough headache Departure - Departure Time of Disposition: 11:45 Disposition: Home, Self-Care 01 Condition: Good Clinical Impression: Intracranial hemorrhage Migraine headache Qualifiers: Migraine type: without aura Status migrainosus presence: without status migrainosus Intractability: not intractable Qualified Code(s): G43.009 - Migraine without aura, not intractable, without status migrainosus - Discharge Information Referrals: Abimbola Hart PA-C [Primary Care Provider] - Forms: ED Department Discharge Additional Instructions: Drink plenty of fluids rest, may use Naprosyn 500 mg twice a day as needed for headache. Follow-up with your primary care physician. Return to emergency room with any recurrent headache specially associated with fevers, stiff neck, vomiting unable to keep down fluids dizziness weakness or worsening. Sepsis Event Note (ED) - Evaluation Sepsis Screening Result: No Definite Risk - Focused Exam Vital Signs: Vital Signs Temp Pulse Resp BP Pulse Ox 06/01/21 10:22 96.5 F L 76 18 182/95 H 97
== END 2021-06-01 11:58 | disposition home or self-care (01) ==
LOC: JD.ED 10:08
DX: G43.009 Migraine without aura, not intractable, without status migrainosus (principal); I62.9 Nontraumatic intracranial hemorrhage, unspecified; E66.9 Obesity, unspecified; Z68.35 Body mass index [BMI] 35.0-35.9, adult
CPT/HCPCS: 96374; 96375; 99283; J1200; J1885; J2765; J7030

== ENCOUNTER 2021-09-14 16:19 | Emergency (ER) | payer MEDICAID ==
[2021-09-14 16:32] VITALS: BP 153/85; PULSE 81
[2021-09-14] MEDS ORDERED: Cyclobenzaprine 10 MG Tab PO ONE (17:21)
[2021-09-14] MEDS ORDERED: Ketorolac 60 MG/2 ML SDV IM ONE (17:21)
== END 2021-09-14 17:48 | disposition home or self-care (01) ==
LOC: JD.ED 16:19
DX: M54.50 Low back pain, unspecified (principal); E66.9 Obesity, unspecified; Z68.38 Body mass index [BMI] 38.0-38.9, adult
CPT/HCPCS: 81001; 96372; 99283; A9270; J1885; 99284